=== PATIENT | female | born 1945 | race Caucasian/White ===

== ENCOUNTER 2016-10-01 16:16 | Inpatient (IN) | payer MEDICARE, OTHER ==
[2016-10-01] MEDS ORDERED: ACETAMINOPHEN 325 MG TABLET PO ONE (16:28)
--- NOTE | 2016-10-01 16:28 | ER Document Report ---
ED Medical Screen (RME) - General Chief Complaint: Fever Stated Complaint: FEVER/WOUND ON GROIN AREA Time Seen by Provider: 10/01/16 16:27 TRAVEL OUTSIDE OF THE [place] IN LAST 30 DAYS: No - HPI Notes: 10/01/16 16:27 Full code from [facility] with fever altered mental status. Family at bedside. Patient does have left a wound in the groin region temperature 103 - Related Data Allergies/Adverse Reactions: No Known Allergies Allergy (Unverified 10/14/13 11:00) Past Medical History - Past Medical History Cardiac Medical History: Reports: Hx Heart Attack - NSTEMI 04-16-11 Denies: Hx Hypertension Pulmonary Medical History: Denies: Hx Asthma Neurological Medical History: Reports: Hx Seizures - x2. Denies: Hx Cerebrovascular Accident Endocrine Medical History: Reports: Hx Diabetes Mellitus Type 2 Renal/ Medical History: Denies: Hx Peritoneal Dialysis GI Medical History: Denies: Hx Hepatitis, Hx Hiatal Hernia, Hx Ulcer Musculoskeltal Medical History: Reports Hx Arthritis - RA Psychiatric Medical History: Reports: Hx Depression Infectious Medical History: Denies: Hx Hepatitis Past Surgical History: Reports: Hx Abdominal Surgery - gastric bypass, Hx Cholecystectomy, Hx Gastric Bypass Surgery, Hx Gynecologic Surgery - hysterectomy, Hx Hysterectomy, Hx Neurologic Surgery - brain tumor removal 2008. Denies: Hx Mastectomy, Hx Open Heart Surgery, Hx Pacemaker - Immunizations Hx Diphtheria, Pertussis, Tetanus Vaccination: No Review of Systems - Review of Systems Constitutional: Fever Physical Exam - Vital signs Vitals: Temp Pulse Resp BP Pulse Ox 103 F H 95 22 H 134/59 H 94 10/01/16 16:17 10/01/16 16:17 10/01/16 16:17 10/01/16 16:17 10/01/16 16:17 - Respiratory Respiratory status: No respiratory distress Chest status: Nontender Breath sounds: Normal Chest palpation: Normal Course - Vital Signs Vital signs: Temp Pulse Resp BP Pulse Ox 103 F H 95 22 H 134/59 H 94 10/01/16 16:17 10/01/16 16:17 10/01/16 16:17 10/01/16 16:17 10/01/16 16:17
[2016-10-01] MEDS ORDERED: NORMAL SALINE 1000 ML 1,000 ML IV ONE (16:40)
--- NOTE | 2016-10-01 17:11 | ER Document Report ---
ED Fever - General Chief Complaint: Fever Stated Complaint: FEVER/WOUND ON GROIN AREA Time Seen by Provider: 10/01/16 16:27 Notes: The patient is a 71-year-old female, with a complicated past medical history, including recent hospitalizations last month at [facility] following a ventral hernia repair that led to 2 bouts of MRSA pneumonia that required intubation and urinary tract infections, poorly controlled diabetes, COPD, hypertension, chronic atrial fibrillation and prior tracheostomy removed 1 week ago. She was transferred to [facility] a few days ago and today developed an erythematous rash on her abdomen and a fever up to 103. She saw her surgeon 2 days ago and had the wound cleaned and a wound VAC was placed by the residential. She denies increased discharge out of the wound, urinary symptoms, shortness of breath, cough, nausea, vomiting, abdominal pain, flank pain, headache or neck stiffness. TRAVEL OUTSIDE OF THE [place] IN LAST 30 DAYS: No - Related Data Allergies/Adverse Reactions: No Known Allergies Allergy (Unverified 10/14/13 11:00) Past Medical History - General Information source: Patient - Social History Smoking Status: Never Smoker Family History: Reviewed & Not Pertinent - Past Medical History Cardiac Medical History: Reports: Hx Heart Attack - NSTEMI 04-16-11 Denies: Hx Hypertension Pulmonary Medical History: Denies: Hx Asthma Neurological Medical History: Reports: Hx Seizures - x2. Denies: Hx Cerebrovascular Accident Endocrine Medical History: Reports: Hx Diabetes Mellitus Type 2 Renal/ Medical History: Denies: Hx Peritoneal Dialysis GI Medical History: Denies: Hx Hepatitis, Hx Hiatal Hernia, Hx Ulcer Musculoskeltal Medical History: Reports Hx Arthritis - RA Psychiatric Medical History: Reports: Hx Depression Infectious Medical History: Denies: Hx Hepatitis Past Surgical History: Reports: Hx Abdominal Surgery - gastric bypass, Hx Cholecystectomy, Hx Gastric Bypass Surgery, Hx Gynecologic Surgery - hysterectomy, Hx Hysterectomy, Hx Neurologic Surgery - brain tumor removal 2008. Denies: Hx Mastectomy, Hx Open Heart Surgery, Hx Pacemaker - Immunizations Hx Diphtheria, Pertussis, Tetanus Vaccination: No Review of Systems - Review of Systems Notes: REVIEW OF SYSTEMS: CONSTITUTIONAL: +fevers, -chills EENT: -eye pain, -difficulty swallowing, -nasal congestion CARDIOVASCULAR:-chest pain, -syncope. RESPIRATORY: -cough, -SOB GASTROINTESTINAL: -abdominal pain, -nausea, -vomiting, -diarrhea GENITOURINARY: -dysuria, -hematuria MUSCULOSKELETAL: -back pain, -neck pain SKIN: -rash or skin lesions. HEMATOLOGIC: -easy bruising or bleeding. LYMPHATIC: -swollen, enlarged glands. NEUROLOGICAL: -altered mental status or loss of consciousness, -headache, - neurologic symptoms PSYCHIATRIC: -anxiety, -depression. ALL OTHER SYSTEMS REVIEWED AND NEGATIVE. Physical Exam - Vital signs Vitals: Temp Pulse Resp BP Pulse Ox 103 F H 95 22 H 134/59 H 94 10/01/16 16:17 10/01/16 16:17 10/01/16 16:17 10/01/16 16:17 10/01/16 16:17 - Notes Notes: PHYSICAL EXAMINATION: GENERAL: Well-appearing, well-nourished and in no acute distress. HEAD: Atraumatic, normocephalic. EYES: Pupils equal round and reactive to light, extraocular movements intact, sclera anicteric, conjunctiva are normal. ENT: nares patent, oropharynx clear without exudates. Moist mucous membranes. NECK: Normal range of motion, supple without lymphadenopathy LUNGS: Breath sounds clear to auscultation bilaterally and equal. No wheezes rales or rhonchi. HEART: Regular rate and rhythm without murmurs ABDOMEN: Soft, nontender, normoactive bowel sounds. No guarding, no rebound. No masses appreciated. EXTREMITIES: Normal range of motion, no pitting or edema. No cyanosis. NEUROLOGICAL: Cranial nerves grossly intact. Normal speech, normal gait. Normal sensory, motor, and reflex exams. PSYCH: Normal mood, normal affect. SKIN: Warm, Dry, normal turgor, no rashes or lesions noted. Course - Re-evaluation Re-evalutation: Patient with large abdominal wall cellulitis that started today with fever. Her blood pressure is normal and lactate is normal. ED does not show any evidence of abscess, gas or fluid collection. Patient has history of MRSA. Area of cellulitis marked with surgical marker and will begin vancomycin. Pt also has hypokalemia and was repleted. Pt's PMD is Dr. Davian Smith. 10/01/16 19:[address] Kiser and he has accepted patient to inpatient telemetry. Pt is HD stable at this time. - Vital Signs Vital signs: Temp Pulse Resp BP Pulse Ox 103 F H 95 22 H 134/59 H 94 10/01/16 16:17 10/01/16 16:17 10/01/16 16:17 10/01/16 16:17 10/01/16 16:17 - Laboratory Result Diagrams: 10/01/16 19:26 10/01/16 16:56 Laboratory results interpreted by me: 10/01/16 10/01/16 10/01/16 16:56 16:56 16:56 WBC Hgb Hct MCH RDW VBG pH 7.57 H VBG pCO2 34.8 L Sodium 130.6 L Potassium 2.9 L* Chloride 89 L Carbon Dioxide 32 H Glucose 175 H Calcium 8.0 L Albumin 2.9 L Urine Ascorbic Acid 40 H 10/01/16 19:26 WBC 20.0 H Hgb 9.8 L Hct 30.3 L MCH 26.1 L RDW 16.0 H VBG pH VBG pCO2 Sodium Potassium Chloride Carbon Dioxide Glucose Calcium Albumin Urine Ascorbic Acid - Diagnostic Test Radiology reviewed: Image reviewed, Reports reviewed Radiology results interpreted by me: CT A/P: SURGICAL CHANGES IN THE LOWER ABDOMINAL WALL FOLLOWING HERNIA REPAIR. OPEN MIDLINE INCISION. GENERAL EDEMATOUS CHANGES IN THE SOFT TISSUES BUT NO ABSCESS VISUALIZED. 2. NO OTHER SIGNIFICANT FINDINGS. - EKG Interpretation by Me EKG shows normal: Sinus rhythm, [place], Intervals, QRS Complexes, ST-T Waves Additional EKG results interpreted by me: Poor baseline Discharge - Discharge Clinical Impression: Abdominal wall cellulitis, Hypokalemia Sepsis Qualifiers: Sepsis type: sepsis due to unspecified organism Qualified Code(s): A41.9 - Sepsis, unspecified organism Condition: Stable Disposition: ADMITTED INPATIENT Admitting Provider: [facility] Unit Admitted: Telemetry
[2016-10-01 17:35] LABS: VENOUS BLOOD BASE EXCESS 8.9 mmol/L; VENOUS BLOOD HCO3 31.2 mmol/L (20-32); VENOUS BLOOD PCO2 34.8 mmHg (35-63); VENOUS BLOOD PH 7.57 (7.30-7.42)
[2016-10-01 17:40] LABS: APPEARANCE,URINE CLEAR; BILIRUBIN,URINE NEGATIVE (NEGATIVE); GLUCOSE, URINE NEGATIVE (NEGATIVE); KETONES,URINE NEGATIVE (NEGATIVE); LEUKOCYTE ESTERASE,URINE NEGATIVE (NEGATIVE); NITRITE,URINE NEGATIVE (NEGATIVE); PROTEIN,URINE NEGATIVE (NEGATIVE); PROTHROMBIN TIME 13.9 SEC (11.4-15.4); URINE SPECIFIC GRAVITY 1.008; UROBILINOGEN,URINE NEGATIVE mg/dL (<2.0)
[2016-10-01 17:53] LABS: ALANINE AMINOTRANSFERASE 21 U/L (9-52); ALBUMIN 2.9 g/dL (3.5-5.0); ALKALINE PHOSPHATASE 113 U/L (38-126); ANION GAP 10 (5-19); ASPARTATE AMINO TRANSFERASE 15 U/L (14-36); BILIRUBIN,DIRECT 0.4 mg/dL (0.0-0.4); BILIRUBIN,TOTAL 0.9 mg/dL (0.2-1.3); BLOOD UREA NITROGEN 11 mg/dL (7-20); CARBON DIOXIDE 32 mmol/L (22-30); CHLORIDE 89 mmol/L (98-107); CREATININE RESULT 0.62 mg/dL (0.52-1.25); GLUCOSE 175 mg/dL (75-110); SODIUM 130.6 mmol/L (137-145); TOTAL PROTEIN 6.5 g/dL (6.3-8.2)
[2016-10-01 18:01] LABS: POTASSIUM 2.9 mmol/L (3.6-5.0)
[2016-10-01] MEDS ORDERED: POTASSIUM CHLORIDE 10 MEQ TABLET.SA PO ONE (18:06)
[2016-10-01] MEDS ORDERED: VANCOMYCIN HCL INJ 1000 MG VIAL IV ONE (18:56)
[2016-10-01] MEDS: POTASSI CL 20 MEQ/50 ML RIDER 50 ML IV SCH ×2 (19:05→22:03)
[2016-10-01 19:36] LABS: HEMATOCRIT 30.3 % (36.0-47.0); HEMOGLOBIN 9.8 g/dL (12.0-15.5); HGB HCT DIFFERENCE -0.9; MEAN CORPUSCULAR HEMOGLOBIN 26.1 pg (27.0-33.4); MEAN CORPUSCULAR HGB CONC 32.4 g/dL (32.0-36.0); MEAN CORPUSCULAR VOLUME 81 fl (80-97); RED BLOOD COUNT 3.75 10^6/uL (3.72-5.28)
[2016-10-01] MEDS ORDERED: IBUPROFEN 600 MG TABLET PO ONE (19:37)
[2016-10-01 19:54] LABS: BAND NEUTROPHILS % (MANUAL) 1 % (3-5); BASOPHILS % (MANUAL) 0 % (0-2); EOSINOPHILS % (MANUAL) 0 % (0-6); LYMPHOCYTES % (MANUAL) 7 % (13-45); TOTAL CELLS COUNTED 100
[2016-10-01 19:57] LABS: ANISOCYTOSIS 1+; HYPOCHROMASIA 1+; MICROCYTOSIS SLIGHT; OVALOCYTES SLIGHT; PLATELET CLUMPS PRESENT; POLYCHROMASIA SLIGHT; TARGET CELLS SLIGHT
[2016-10-01] MEDS ORDERED: NORMAL SALINE 1000 ML 1,000 ML IV PRN (20:12)
[2016-10-01] MEDS ORDERED: VANCOMYCIN HCL 0 MG in DEXTROSE 5%-WATER 250 ML IV NR (20:15)
[2016-10-01] MEDS ORDERED: PIPERACILLIN SODIUM/TAZOBACTAM 3.375 GM in NORMAL SALINE 100 ML IV ONE (20:30)
[2016-10-01] MEDS ORDERED: VANCOMYCIN HCL 1,250 MG in DEXTROSE 5%-WATER 250 ML IV ONE (20:30)
[2016-10-01] MEDS ORDERED: VANCOMYCIN HCL INJ 1000 MG VIAL ONE (21:20)
[2016-10-01 21:22] LABS: CREATINE KINASE MB 0.25 ng/mL (<4.55)
[2016-10-01 21:23] LABS: PARTIAL THROMBOPLASTIN TIME 31.9 SEC (23.5-35.8); PROTHROMBIN TIME 14.9 SEC (11.4-15.4)
[2016-10-01 21:26] LABS: TROPONIN I 0.074 ng/mL
[2016-10-01] MEDS: HEPARIN SOD (PORCINE) 5,000 UNIT/ML 1 ML SYRINGE SUBCUT SCH (21:33)
--- NOTE | 2016-10-01 22:43 | EKG REPORT ---
SEVERITY:- ABNORMAL ECG - SR WITH APCs, BLOCKED APCs PROBABLE LVH WITH SECONDARY REPOL ABNRM : Confirmed by: Dwayne Rivas 01-Oct-2016 22:42:54
[2016-10-02] MEDS ORDERED: PIPERACILLIN/TAZOBACTAM 3.375 GM VIAL IV ONE (00:51)
[2016-10-02] MEDS: HYDROCODONE/ACETAMINOPHEN 5-325 MG TABLET PO PRN ×3 (02:24→21:21)
[2016-10-02] MEDS: PIPERACILLIN SODIUM/TAZOBACTAM 3.375 GM in NORMAL SALINE 100 ML IV SCH ×4 (02:24→21:21)
[2016-10-02 03:21] LABS: ABSOLUTE BASOPHILS # (AUTO) 0.1 10^3/uL (0.0-0.2); ABSOLUTE LYMPHOCYTES (AUTO) 0.8 10^3/uL (0.5-4.7); ABSOLUTE MONOCYTES (AUTO) 0.6 10^3/uL (0.1-1.4); ABSOLUTE NEUT (AUTO) 13.1 10^3/uL (1.7-8.2); BASOPHILS % (AUTO) 0.6 % (0-2); EOSINOPHILS % (AUTO) 0.1 % (0-6); HEMATOCRIT 30.1 % (36.0-47.0); HEMOGLOBIN 9.8 g/dL (12.0-15.5); HGB HCT DIFFERENCE -0.7; LYMPHOCYTES % (AUTO) 5.4 % (13-45); MEAN CORPUSCULAR HEMOGLOBIN 26.2 pg (27.0-33.4); MEAN CORPUSCULAR HGB CONC 32.4 g/dL (32.0-36.0); MEAN CORPUSCULAR VOLUME 81 fl (80-97); MONOCYTES % (AUTO) 4.1 % (3-13); RED BLOOD COUNT 3.73 10^6/uL (3.72-5.28); SEGMENTED NEUTROPHILS % (AUTO) 89.8 % (42-78); WHITE BLOOD COUNT 14.6 10^3/uL (4.0-10.5)
[2016-10-02 03:36] LABS: ANION GAP 9 (5-19); BLOOD UREA NITROGEN 11 mg/dL (7-20); CARBON DIOXIDE 30 mmol/L (22-30); CHLORIDE 97 mmol/L (98-107); CREATINE KINASE 30 U/L (30-135); CREATININE RESULT 0.57 mg/dL (0.52-1.25); POTASSIUM 3.4 mmol/L (3.6-5.0); SODIUM 136.2 mmol/L (137-145)
[2016-10-02 03:41] LABS: GLUCOSE 134 mg/dL (75-110)
[2016-10-02 03:42] LABS: CALCIUM 7.9 mg/dL (8.4-10.2)
[2016-10-02 03:48] LABS: CREATINE KINASE MB 0.57 ng/mL (<4.55); TROPONIN I 0.052 ng/mL
[2016-10-02] MEDS: HEPARIN SOD (PORCINE) 5,000 UNIT/ML 1 ML SYRINGE SUBCUT SCH ×3 (05:50→22:40)
[2016-10-02] MEDS ORDERED: POLYETHYLENE GLYCOL 3350 POWDER 17 GM/1 PACKET PO PRN (07:13)
[2016-10-02] MEDS ORDERED: METOPROLOL TARTRATE 50 MG TABLET PO SCH (10:00)
[2016-10-02] MEDS ORDERED: MONTELUKAST SODIUM 10 MG TABLET PO SCH ×2 (10:00→22:00)
[2016-10-02 10:03] LABS: CREATINE KINASE MB 0.49 ng/mL (<4.55); TROPONIN I 0.035 ng/mL
[2016-10-02] MEDS: MULTIVITAMIN TABLET PO SCH (10:15)
[2016-10-02] MEDS: FUROSEMIDE 20 MG TABLET PO SCH (10:16)
[2016-10-02] MEDS: ASCORBIC ACID 500 MG TABLET PO SCH (10:17)
[2016-10-02] MEDS: FERROUS SULFATE 325 MG TABLET PO SCH (10:17)
[2016-10-02] MEDS: LEVOTHYROXINE SODIUM 0.025 MG TABLET PO SCH (10:17)
[2016-10-02] MEDS: FAMOTIDINE 20 MG TABLET PO SCH (10:17)
[2016-10-02] MEDS: LAMOTRIGINE 100 MG TABLET PO SCH (10:18)
[2016-10-02] MEDS: ROPINIROLE HCL 2 MG TABLET PO SCH (10:18)
[2016-10-02] MEDS: METOPROLOL TARTRATE 50 MG TABLET PO SCH ×2 (10:18→22:41)
[2016-10-02] MEDS: FLUTICASONE NASAL SPRAY 50 MCG/SPRY 120 SPRAY/16 GM NASL SCH (10:19)
[2016-10-02] MEDS: BISACODYL 5 MG TABEC PO SCH (10:52)
[2016-10-02] MEDS: DOCUSATE SODIUM 100 MG CAPSULE PO SCH ×2 (10:52→17:00)
[2016-10-02] MEDS: SENNOSIDES/DOCUSATE 8.6-50 MG 1 EACH TABLET PO SCH (10:52)
[2016-10-02] MEDS: ACETAMINOPHEN 325 MG TABLET PO PRN (13:46)
[2016-10-02] MEDS: VANCOMYCIN HCL 1,500 MG in DEXTROSE 5%-WATER 250 ML IV SCH ×2 (13:50→22:41)
[2016-10-03] MEDS: PIPERACILLIN SODIUM/TAZOBACTAM 3.375 GM in NORMAL SALINE 100 ML IV SCH ×3 (03:37→17:50)
[2016-10-03] MEDS: ACETAMINOPHEN 325 MG TABLET PO PRN (04:31)
[2016-10-03] MEDS: HEPARIN SOD (PORCINE) 5,000 UNIT/ML 1 ML SYRINGE SUBCUT SCH ×2 (05:54→18:12)
[2016-10-03 07:20] LABS: ABSOLUTE EOSINOPHILS # (AUTO) 0.3 10^3/uL (0.0-0.6); ABSOLUTE MONOCYTES (AUTO) 0.5 10^3/uL (0.1-1.4); ABSOLUTE NEUT (AUTO) 6.6 10^3/uL (1.7-8.2); BASOPHILS % (AUTO) 0.6 % (0-2); EOSINOPHILS % (AUTO) 3.5 % (0-6); HEMATOCRIT 26.8 % (36.0-47.0); HEMOGLOBIN 8.7 g/dL (12.0-15.5); HGB HCT DIFFERENCE -0.7; LYMPHOCYTES % (AUTO) 11.7 % (13-45); MEAN CORPUSCULAR HEMOGLOBIN 25.7 pg (27.0-33.4); MEAN CORPUSCULAR HGB CONC 32.4 g/dL (32.0-36.0); MEAN CORPUSCULAR VOLUME 79 fl (80-97); MONOCYTES % (AUTO) 5.7 % (3-13); RED BLOOD COUNT 3.38 10^6/uL (3.72-5.28); RED CELL DISTRIBUTION WIDTH 15.7 % (11.5-14.0); SEGMENTED NEUTROPHILS % (AUTO) 78.5 % (42-78); WHITE BLOOD COUNT 8.5 10^3/uL (4.0-10.5)
[2016-10-03 07:38] LABS: ANION GAP 9 (5-19); BLOOD UREA NITROGEN 8 mg/dL (7-20); CALCIUM 7.6 mg/dL (8.4-10.2); CARBON DIOXIDE 30 mmol/L (22-30); CHLORIDE 97 mmol/L (98-107); CREATININE RESULT 0.55 mg/dL (0.52-1.25); GLUCOSE 101 mg/dL (75-110); SODIUM 135.8 mmol/L (137-145)
[2016-10-03] MEDS ORDERED: POTASSIUM CHLORIDE 10 MEQ TABLET.SA PO ONE ×2 (11:17→12:15)
[2016-10-03] MEDS: METOPROLOL TARTRATE 50 MG TABLET PO SCH (11:19)
[2016-10-03] MEDS: ASCORBIC ACID 500 MG TABLET PO SCH (11:19)
[2016-10-03] MEDS: FAMOTIDINE 20 MG TABLET PO SCH (11:20)
[2016-10-03] MEDS: LEVOTHYROXINE SODIUM 0.025 MG TABLET PO SCH (11:20)
[2016-10-03] MEDS: MULTIVITAMIN TABLET PO SCH (11:21)
[2016-10-03] MEDS: FUROSEMIDE 20 MG TABLET PO SCH (11:21)
[2016-10-03] MEDS: LAMOTRIGINE 100 MG TABLET PO SCH (11:22)
[2016-10-03] MEDS: ROPINIROLE HCL 2 MG TABLET PO SCH (11:23)
[2016-10-03] MEDS: FERROUS SULFATE 325 MG TABLET PO SCH (11:24)
[2016-10-03] MEDS: FLUTICASONE NASAL SPRAY 50 MCG/SPRY 120 SPRAY/16 GM NASL SCH (11:24)
[2016-10-03] MEDS: DOCUSATE SODIUM 100 MG CAPSULE PO SCH ×2 (11:24→17:49)
[2016-10-03] MEDS: BISACODYL 5 MG TABEC PO SCH (11:24)
[2016-10-03] MEDS: SENNOSIDES/DOCUSATE 8.6-50 MG 1 EACH TABLET PO SCH (11:24)
[2016-10-03] MEDS: VANCOMYCIN HCL 1,500 MG in DEXTROSE 5%-WATER 250 ML IV SCH (12:00)
--- NOTE | 2016-10-03 18:28 | PDOC H&P ---
History of Present Illness Admission Date/PCP: 10/01/16 19:50 Patient complains of: Fever/wound on the abdominal area History of Present Illness: WILFREDO LARIOS is a 71 year old female This is a 71-year-old female with a complicated past medical history including the recent hospitalizations last month of the [place] and a [facility] falling the ventral hernia repair that at least 2 bouts of MRSA pneumonia that required intubations any urinary tract infections and history of the diabetes COPD hypertensions and a chronic atrial fibrillations and prior tracheostomy removed one week ago. She was transported to the [facility] a few days ago and today developed erythematous rash on her abdomen and fever up to 103. She saw her surgeon 2 days ago and had the wound clean and the wound VAC was placed by the half-way. She is denies any increasing any discharge out of the wound urinary symptoms any cough or any abdominal pain. Patient's white count was elevated 14 and patient was admitting in the hospital for the IV antibiotic and surgical consult Past Medical History Cardiac Medical History: Reports: Myocardial Infarction - NSTEMI 04-16-11 Denies: Hypertension Pulmonary Medical History: Denies: Asthma Neurological Medical History: Reports: Seizures - x2 Endocrine Medical History: Reports: Diabetes Mellitus Type 2 GI Medical History: Denies: Hepatitis, Hiatal Hernia Musculoskeltal Medical History: Reports: Arthritis - RA Psychiatric Medical History: Reports: Dementia, Depression Hematology: Reports: Anemia - B-12 SHOTS Denies: Sickle Cell Disease Past Surgical History Past Surgical History: Reports: Cholecystectomy, Gastric Bypass Surgery, Hysterectomy Denies: Amputation, Mastectomy, Pacemaker Social History Smoking Status: Never Smoker Frequency of Alcohol Use: None - Advance Directive Resuscitation Status: Full Code Family History Family History: Reviewed & Not Pertinent Parental Family History Reviewed: Yes Children Family History Reviewed: Yes Sibling(s) Family History Reviewed.: Yes Medication/Allergy Home Medications: Acetaminophen [Tylenol 325 mg Tablet] 650 mg PO Q4HP PRN 10/02/16 Ascorbate Calcium [Vitamin C] 500 mg PO DAILY 10/02/16 Bisacodyl [Dulcolax 5 mg Tablet] 10 mg PO Q2D 10/02/16 Chlorhexidine Gluconate [Peridex] 15 ml PO BID 10/02/16 Docusate Sodium [Colace 100 mg Capsule] 100 mg PO BID 10/02/16 Famotidine [Pepcid 20 mg Tablet] 20 mg PO DAILY 10/02/16 Ferrous Sulfate [Feosol 325 mg Tablet] 325 mg PO DAILY 10/02/16 Fluticasone Propionate [Flonase Nasal [place] 50 Mcg/[place] 16 gm] 1 spray NASL DAILY 10/02/16 Furosemide [Lasix 20 mg Tablet] 20 mg PO DAILY 10/02/16 Guaifenesin [Robitussin Syrup 200 mg/10 ml Ud Cup] 5 ml PO Q6HP PRN 10/02/16 Hydrocodone/Acetaminophen [[place] 5-325 mg Tablet] 1 tab PO Q6HP PRN 10/02/16 Insulin Lispro [Humalog] 0 units SQ .PERSLIDINGSCALE 10/02/16 Lamotrigine [Lamictal] 150 mg PO QHS 10/02/16 Levothyroxine Sodium [Synthroid] 25 mcg PO DAILY 10/02/16 Melatonin/Pyridoxine HCl (B6) [Melatonin 10 mg Tablet] 10 mg PO QHS 10/02/16 Metoprolol Tartrate [Lopressor 50 mg Tablet] 50 mg PO Q12 10/02/16 Montelukast Sodium [Singulair 10 mg Tablet] 10 mg PO DAILY 10/02/16 Multivits-Min/Iron/FA/Lutein [Centrum Silver Women Tablet] 1 tab PO DAILY Polyethylene Glycol 3350 [Miralax Powder 17 gm/Packet] 17 gm PO DAILYP PRN 10/02 Ropinirole HCl [Requip] 2 mg PO DAILY 10/02/16 Sennosides [Senna] 8.6 mg PO QHS 10/02/16 Allergies/Adverse Reactions: No Known Allergies Allergy (Unverified 10/14/13 11:00) Review of Systems Constitutional: PRESENT: chills, fever(s). ABSENT: headache(s), weight gain, weight loss Eyes: ABSENT: visual disturbances Ears: ABSENT: hearing changes Cardiovascular: ABSENT: chest pain, dyspnea on exertion, edema, orthropnea, palpitations Respiratory: ABSENT: cough, hemoptysis Gastrointestinal: PRESENT: abdominal pain. ABSENT: constipation, diarrhea, hematemesis, hematochezia, nausea, vomiting Genitourinary: ABSENT: dysuria, hematuria Musculoskeletal: ABSENT: joint swelling Integumentary: ABSENT: rash, wounds Neurological: ABSENT: abnormal gait, abnormal speech, confusion, dizziness, focal weakness, syncope Psychiatric: ABSENT: anxiety, depression, homidical ideation, suicidal ideation Endocrine: ABSENT: cold intolerance, heat intolerance, menstrual abnormalities, polydipsia, polyuria Hematologic/Lymphatic: ABSENT: easy bleeding, easy bruising, lymphadenopathy Physical Exam Vital Signs: Temp Pulse Resp BP Pulse Ox 98.2 F 86 20 126/77 H 98 10/03/16 15:32 10/03/16 15:32 10/03/16 15:32 10/03/16 15:32 10/03/16 15:32 Intake & Output 10/02/16 10/03/16 10/04/16 06:59 06:59 06:59 Intake Total 2250 4394 900 Output Total 1600 2700 Balance 2250 2794 -1800 Weight 85.9 kg General appearance: PRESENT: no acute distress, well-developed, well-nourished Head exam: PRESENT: atraumatic, normocephalic Eye exam: PRESENT: conjunctiva pink, EOMI, PERRLA. ABSENT: scleral icterus Ear exam: PRESENT: normal external ear exam Mouth exam: PRESENT: moist, tongue midline Neck exam: PRESENT: full ROM. ABSENT: carotid bruit, JVD, lymphadenopathy, thyromegaly Respiratory exam: PRESENT: clear to auscultation valentino Cardiovascular exam: PRESENT: RRR. ABSENT: diastolic murmur, rubs, systolic murmur Pulses: PRESENT: normal dorsalis pedis pul, +2 pedal pulses bilateral Vascular exam: PRESENT: normal capillary refill GI/Abdominal exam: PRESENT: normal bowel sounds Additonal comments: Open wound in the lower abdominal and the redness on the lower abdominal area on the whole entire area Rectal exam: PRESENT: deferred Neurological exam: PRESENT: alert, awake, oriented to person, oriented to place , oriented to time, oriented to situation, CN II-XII grossly intact. ABSENT: motor sensory deficit Psychiatric exam: PRESENT: appropriate affect, normal mood. ABSENT: homicidal ideation, suicidal ideation Skin exam: PRESENT: dry, intact, warm. ABSENT: cyanosis, rash Results Laboratory Results: 10/03/16 06:52 10/03/16 14:45 10/03/16 10/03/16 10/03/16 06:52 06:52 14:45 WBC 8.5 RBC 3.38 L Hgb 8.7 L Hct 26.8 L MCV 79 L MCH 25.7 L MCHC 32.4 RDW 15.7 H Plt Count 375 Seg Neutrophils % 78.5 H Lymphocytes % 11.7 L Monocytes % 5.7 Eosinophils % 3.5 Basophils % 0.6 Absolute Neutrophils 6.6 Absolute Lymphocytes 1.0 Absolute Monocytes 0.5 Absolute Eosinophils 0.3 Absolute Basophils 0.0 Sodium 135.8 L Potassium 3.0 L* 3.6 Chloride 97 L Carbon Dioxide 30 Anion Gap 9 BUN 8 Creatinine 0.55 Est GFR ( Amer) > 60 Est GFR (Non-Af Amer) > 60 Glucose 101 Calcium 7.6 L 10/02/16 06:00 Nasophary ([facility] Only) MRSA Surveillance Culture - Final NO MRSA RECOVERED 10/01/16 10/01/16 10/02/16 20:46 20:46 03:12 Creatine Kinase 24 L 30 CK-MB (CK-2) 0.25 Troponin I 0.074 10/02/16 10/02/16 10/02/16 03:12 09:21 09:21 Creatine Kinase 28 L CK-MB (CK-2) 0.57 0.49 Troponin I 0.052 0.035 Impressions: Chest X-Ray 10/01/16 16:28 IMPRESSION: LINEAR ATELECTASIS/ SCARRING IN THE LOWER LOBES. OTHERWISE NO ACUTE RADIOGRAPHIC FINDING IN THE CHEST. Abdomen/Pelvis CT 10/01/16 18:09 IMPRESSION: 1. SURGICAL CHANGES IN THE LOWER ABDOMINAL WALL FOLLOWING HERNIA REPAIR. OPEN MIDLINE INCISION. GENERAL EDEMATOUS CHANGES IN THE SOFT TISSUES BUT NO ABSCESS VISUALIZED. 2. NO OTHER SIGNIFICANT FINDINGS. Assessment & Plan - Diagnosis (1) Abdominal wall cellulitis Is this a current diagnosis for this admission?: YesPlan: Start the patient on IV Zosyn and vancomycin and get the blood culture urine culture and consult the surgery for further evaluations (2) Sepsis Qualifiers: Sepsis type: sepsis due to unspecified organism Qualified Code(s): A41.9 - Sepsis, unspecified organism Is this a current diagnosis for this admission?: YesPlan: Most likely due to the about conditions (3) Type II diabetes mellitus Qualifiers: Diabetes mellitus complication status: with unspecified complications Is this a current diagnosis for this admission?: YesPlan: Shimon a sliding scale (4) Depression Qualifiers: Depression Type: unspecified Qualified Code(s): F32.9 - Major depressive disorder, single episode, unspecified Is this a current diagnosis for this admission?: YesPlan: Currently stable (5) Dementia Qualifiers: Dementia type: unspecified type Is this a current diagnosis for this admission?: Yes (6) Hypokalemia Is this a current diagnosis for this admission?: YesPlan: Replace the potassiums (7) Hypertension Qualifiers: Hypertension type: essential hypertension Qualified Code(s): I10 - Essential (primary) hypertension Is this a current diagnosis for this admission?: YesPlan: Currently stable - Time Time Spent: 30 to 50 Minutes Medications reviewed and adjusted accordingly: Yes Anticipated discharge: Other Within: Other - Inpatient Certification Medical Necessity: Significant Comorbidiites Make Outpatient Treatment Too Risky , Need for IV Antibiotics Post Hospital Care: D/C [facility] Documentation - Plan Summary Plan Summary: Admitting the patient start the patient on IV antibiotic and consult the surgery
--- NOTE | 2016-10-03 18:32 | PDOC TRANSFER SUMMARY ---
General Admission Date/PCP: 10/01/16 19:50 Transfer Date: 10/03/16 Accepting Facility: [facility] Resuscitation Status: Full Code - Transfer Diagnosis (1) Abdominal wall cellulitis Is this a current diagnosis for this admission?: YesDiagnosis Summary: Discussed with the surgeon and suggest to transfer the patient's vidant for the further surgical interventions (2) Sepsis Is this a current diagnosis for this admission?: YesDiagnosis Summary: [employer] IV antibiotic (3) Type II diabetes mellitus Is this a current diagnosis for this admission?: YesDiagnosis Summary: Continues a sliding scale (4) Depression Is this a current diagnosis for this admission?: YesDiagnosis Summary: Currently stable (5) Dementia Is this a current diagnosis for this admission?: Yes (6) Hypokalemia Is this a current diagnosis for this admission?: Yes (7) Hypertension Is this a current diagnosis for this admission?: Yes - Transfer Medications Home Medications: Acetaminophen [Tylenol 325 mg Tablet] 650 mg PO Q4HP PRN 10/02/16 Ascorbate Calcium [Vitamin C] 500 mg PO DAILY 10/02/16 Bisacodyl [Dulcolax 5 mg Tablet] 10 mg PO Q2D 10/02/16 Chlorhexidine Gluconate [Peridex] 15 ml PO BID 10/02/16 Docusate Sodium [Colace 100 mg Capsule] 100 mg PO BID 10/02/16 Famotidine [Pepcid 20 mg Tablet] 20 mg PO DAILY 10/02/16 Ferrous Sulfate [Feosol 325 mg Tablet] 325 mg PO DAILY 10/02/16 Fluticasone Propionate [Flonase Nasal [place] 50 Mcg/[place] 16 gm] 1 spray NASL DAILY 10/02/16 Furosemide [Lasix 20 mg Tablet] 20 mg PO DAILY 10/02/16 Guaifenesin [Robitussin Syrup 200 mg/10 ml Ud Cup] 5 ml PO Q6HP PRN 10/02/16 Hydrocodone/Acetaminophen [[place] 5-325 mg Tablet] 1 tab PO Q6HP PRN 10/02/16 Insulin Lispro [Humalog] 0 units SQ .PERSLIDINGSCALE 10/02/16 Lamotrigine [Lamictal] 150 mg PO QHS 10/02/16 Levothyroxine Sodium [Synthroid] 25 mcg PO DAILY 10/02/16 Melatonin/Pyridoxine HCl (B6) [Melatonin 10 mg Tablet] 10 mg PO QHS 10/02/16 Metoprolol Tartrate [Lopressor 50 mg Tablet] 50 mg PO Q12 10/02/16 Montelukast Sodium [Singulair 10 mg Tablet] 10 mg PO DAILY 10/02/16 Multivits-Min/Iron/FA/Lutein [Centrum Silver Women Tablet] 1 tab PO DAILY Polyethylene Glycol 3350 [Miralax Powder 17 gm/Packet] 17 gm PO DAILYP PRN 10/02 Ropinirole HCl [Requip] 2 mg PO DAILY 10/02/16 Sennosides [Senna] 8.6 mg PO QHS 10/02/16 Transfer Medications: Current Medications Acetaminophen (Tylenol 325 Mg Tablet) 650 mg PO Q6HP PRN PRN Reason: PAIN SCALE OF 1-3 Stop: 11/01/16 01:05 Last Admin: 10/03/16 04:31 Dose: 650 mg Acetaminophen/Hydrocodone Bitart ([place] 5-325 Mg Tablet) 1 tab PO Q6HP PRN PRN Reason: FOR PAIN SCALE 3-4 Stop: 10/09/16 01:12 Last Admin: 10/02/16 21:21 Dose: 1 tab Ascorbic Acid (Vitamin C 500 Mg Tablet) 500 mg PO DAILY [facility] Stop: 11/01/16 09:59 Last Admin: 10/03/16 11:19 Dose: 500 mg Bisacodyl (Dulcolax 5 Mg Tablet) 10 mg PO DAILY [facility] Stop: 11/01/16 09:59 Last Admin: 10/03/16 11:24 Dose: Not Given Docusate Sodium (Colace 100 Mg Capsule) 100 mg PO BID [facility] Stop: 11/01/16 09:59 Last Admin: 10/03/16 17:49 Dose: Not Given Famotidine (Pepcid 20 Mg Tablet) 20 mg PO DAILY [facility] Stop: 11/01/16 09:59 Last Admin: 10/03/16 11:20 Dose: 20 mg Ferrous Sulfate (Feosol 325 Mg Tablet) 325 mg PO DAILY [facility] Stop: 11/01/16 09:59 Last Admin: 10/02/16 10:17 Dose: 325 mg Fluticasone Propionate (Flonase Nasal [place] 50 Mcg/[place] 16 Gm) 2 spray NASL DAILY [facility] Stop: 11/01/16 09:59 Last Admin: 10/03/16 11:24 Dose: Not Given Furosemide (Lasix 20 Mg Tablet) 20 mg PO DAILY [facility] Stop: 11/01/16 09:59 Last Admin: 10/03/16 11:21 Dose: 20 mg Heparin Sodium (Porcine) (Heparin Inj 5,000 Units/Ml 1 Ml Syringe) 5,000 unit SUBCUT Q8 ANITA Stop: 10/31/16 21:59 Last Admin: 10/03/16 18:12 Dose: 5,000 unit Piperacillin Sod/Tazobactam (Sod 3.375 gm/ Sodium Chloride) 100 mls @ 200 mls/ hr IV Q6A [facility] Stop: 10/09/16 02:59 Last Admin: 10/03/16 17:50 Dose: 3.375 gm Sodium Chloride (Nacl 0.9% 1000 Ml Iv Soln) 1,000 mls @ 100 mls/hr IV CONTINUOUS PRN PRN Reason: THIS MED IS NOT "PRN" Stop: 10/31/16 20:11 Last Admin: 10/01/16 21:25 Dose: 1,000 ml Vancomycin HCl 1,500 mg/ (Dextrose) 250 mls @ 166.667 mls/hr IV Q12 [facility] Stop: 10/09/16 09:59 Last Admin: 10/02/16 22:41 Dose: 1,500 mg Lamotrigine (Lamictal 100 Mg Tablet) 150 mg PO DAILY [facility] Stop: 11/01/16 09:59 Last Admin: 10/03/16 11:22 Dose: 150 mg Levothyroxine Sodium (Synthroid 0.025 Mg Tablet) 0.025 mg PO DAILY ANITA Stop: 11/01/16 09:59 Last Admin: 10/03/16 11:20 Dose: 0.025 mg Metoprolol Tartrate (Lopressor 50 Mg Tablet) 50 mg PO Q12 ANITA Stop: 11/01/16 09:59 Last Admin: 10/03/16 11:19 Dose: 50 mg Montelukast Sodium (Singulair 10 Mg Tablet) 10 mg PO QHS [facility] Stop: 11/01/16 21:59 Last Admin: 10/02/16 22:40 Dose: 10 mg Multivitamins (Tab-A-Eko (Multiple Vitamin) Tablet) 1 tab PO DAILY [facility] Stop: 11/01/16 09:59 Last Admin: 10/03/16 11:21 Dose: 1 tab Polyethylene Glycol (Miralax Powder 17 Gm/Packet) 17 gm PO DAILYP PRN PRN Reason: CONSTIPATION Stop: 11/01/16 07:12 Ropinirole HCl (Requip 2 Mg Tablet) 2 mg PO DAILY ANITA Stop: 11/01/16 09:59 Last Admin: 10/03/16 11:23 Dose: 2 mg Senna/Docusate Sodium (Senna Plus Tablet) 1 each PO DAILY ANITA Stop: 11/01/16 09:59 Last Admin: 10/03/16 11:24 Dose: Not Given - Allergies Allergies/Adverse Reactions: No Known Allergies Allergy (Unverified 10/14/13 11:00) Hospital Course Hospital Course: This is a 71-year-old female recently underwent hernia surgery and placed on the wound VAC and came to the emergency department with the fever and the cellulitis and patient was started on IV antibiotic and patient responded well the surgery was consulted and suggest the patient's need for further surgical intervention and discuss with the patient and the daughter was to perform to go to the count includes the [facility] for further evaluations and patient was transported to the tertiary center Physical Exam Vital Signs: Temp Pulse Resp BP Pulse Ox 98.2 F 86 20 126/77 H 98 10/03/16 15:32 10/03/16 15:32 10/03/16 15:32 10/03/16 15:32 10/03/16 15:32 Intake & Output 10/02/16 10/03/16 10/04/16 06:59 06:59 06:59 Intake Total 2250 4394 900 Output Total 1600 2700 Balance 2250 2794 -1800 Weight 85.9 kg General appearance: PRESENT: no acute distress, well-developed, well-nourished Head exam: PRESENT: atraumatic, normocephalic Eye exam: PRESENT: conjunctiva pink, EOMI, PERRLA. ABSENT: scleral icterus Ear exam: PRESENT: normal external ear exam Mouth exam: PRESENT: moist, tongue midline Neck exam: ABSENT: carotid bruit, JVD, lymphadenopathy, thyromegaly Respiratory exam: PRESENT: clear to auscultation valentino. ABSENT: rales, rhonchi, wheezes Cardiovascular exam: PRESENT: RRR. ABSENT: diastolic murmur, rubs, systolic murmur Pulses: PRESENT: normal dorsalis pedis pul Vascular exam: PRESENT: normal capillary refill GI/Abdominal exam: PRESENT: normal bowel sounds, soft, other Rectal exam: PRESENT: deferred Extremities exam: PRESENT: full ROM. ABSENT: calf tenderness, clubbing, pedal edema Neurological exam: PRESENT: alert, awake, oriented to person, oriented to place , oriented to time, oriented to situation, CN II-XII grossly intact. ABSENT: motor sensory deficit Psychiatric exam: PRESENT: appropriate affect, normal mood. ABSENT: homicidal ideation, suicidal ideation Skin exam: PRESENT: dry, intact, warm. ABSENT: cyanosis, rash Results Laboratory Results: 10/03/16 06:52 10/03/16 14:45 10/03/16 10/03/16 10/03/16 06:52 06:52 14:45 WBC 8.5 RBC 3.38 L Hgb 8.7 L Hct 26.8 L MCV 79 L MCH 25.7 L MCHC 32.4 RDW 15.7 H Plt Count 375 Seg Neutrophils % 78.5 H Lymphocytes % 11.7 L Monocytes % 5.7 Eosinophils % 3.5 Basophils % 0.6 Absolute Neutrophils 6.6 Absolute Lymphocytes 1.0 Absolute Monocytes 0.5 Absolute Eosinophils 0.3 Absolute Basophils 0.0 Sodium 135.8 L Potassium 3.0 L* 3.6 Chloride 97 L Carbon Dioxide 30 Anion Gap 9 BUN 8 Creatinine 0.55 Est GFR ( Amer) > 60 Est GFR (Non-Af Amer) > 60 Glucose 101 Calcium 7.6 L 10/02/16 06:00 Nasophary (Mrsa Only) MRSA Surveillance Culture - Final NO MRSA RECOVERED 10/01/16 10/01/16 10/02/16 20:46 20:46 03:12 Creatine Kinase 24 L 30 CK-MB (CK-2) 0.25 Troponin I 0.074 10/02/16 10/02/16 10/02/16 03:12 09:21 09:21 Creatine Kinase 28 L CK-MB (CK-2) 0.57 0.49 Troponin I 0.052 0.035 Impressions: Chest X-Ray 10/01/16 16:28 IMPRESSION: LINEAR ATELECTASIS/ SCARRING IN THE LOWER LOBES. OTHERWISE NO ACUTE RADIOGRAPHIC FINDING IN THE CHEST. Abdomen/Pelvis CT 10/01/16 18:09 IMPRESSION: 1. SURGICAL CHANGES IN THE LOWER ABDOMINAL WALL FOLLOWING HERNIA REPAIR. OPEN MIDLINE INCISION. GENERAL EDEMATOUS CHANGES IN THE SOFT TISSUES BUT NO ABSCESS VISUALIZED. 2. NO OTHER SIGNIFICANT FINDINGS. Plan Time Spent: Greater than 30 Minutes - Transfer the patient's vidant
[2016-10-03 20:41] VITALS: BP 129/61
== END 2016-10-03 20:30 | disposition short-term general hospital (02) | DRG 872 ==
LOC: ER 16:16 → EH 19:50 → 5 22:36
PROVIDERS: ADMIT Internal Medicine; ATTEND Family Medicine
DX: A41.9 Sepsis, unspecified organism (principal); L03.311 Cellulitis of abdominal wall; E87.6 Hypokalemia; I48.2 Chronic atrial fibrillation; I10 Essential (primary) hypertension; E11.9 Type 2 diabetes mellitus without complications; J44.9 Chronic obstructive pulmonary disease, unspecified; F03.90 Unspecified dementia, unspecified severity, without behavioral disturbance, psychotic disturbance, mood disturbance, and anxiety; R56.9 Unspecified convulsions; F32.9 Major depressive disorder, single episode, unspecified; M06.9 Rheumatoid arthritis, unspecified; I25.2 Old myocardial infarction
CPT/HCPCS: 36415; 71020; 74177; 80048; 80053; 81001; 82550; 82553; 82803; 83036; 83605; 83735; 84132; 84484; 85025; 85610; 85730; 87040; 87086; 87088; 87186; 93005; 93010; 96361; 96365; 99285; J1644; J2543; J3370; J3480; J3490; J7030; J7060

== ENCOUNTER 2016-12-05 11:34 | Inpatient (IN) | payer MEDICARE, OTHER ==
[2016-12-05] MEDS ORDERED: ACETAMINOPHEN 325 MG TABLET PO ONE (11:59)
--- NOTE | 2016-12-05 12:03 | ER Document Report ---
ED Medical Screen (RME) - General Chief Complaint: Black/Tarry Stools Stated Complaint: FEVER, BLACK STOOL Time Seen by Provider: 12/05/16 11:55 Information source: Patient Notes: 71-year-old female with supposedly a "hernia repair" 6 months ago who presents from [facility] with a fever yesterday as well as some nausea without vomiting, diarrhea, or dysuria. Patient also states some black stool. She denies any runny nose, congestion, headache, neck pain, chest pain, or cough. On examination the patient has diffuse erythema in a circular blanching margin to the abdomen around the wound site. We will obtain basic labs, blood cultures, provide Tylenol, and consider CT scanning of the abdomen and pelvis. TRAVEL OUTSIDE OF THE [place] IN LAST 30 DAYS: No - Related Data Allergies/Adverse Reactions: No Known Allergies Allergy (Verified 12/05/16 11:37) Past Medical History - Past Medical History Cardiac Medical History: Reports: Hx Heart Attack - NSTEMI 04-16-11 Denies: Hx Hypertension Pulmonary Medical History: Denies: Hx Asthma Neurological Medical History: Reports: Hx Seizures - x2. Denies: Hx Cerebrovascular Accident Endocrine Medical History: Reports: Hx Diabetes Mellitus Type 2 Renal/ Medical History: Denies: Hx Peritoneal Dialysis GI Medical History: Denies: Hx Hepatitis, Hx Hiatal Hernia, Hx Ulcer Musculoskeltal Medical History: Reports Hx Arthritis - RA Psychiatric Medical History: Reports: Hx Dementia, Hx Depression Infectious Medical History: Denies: Hx Hepatitis Past Surgical History: Reports: Hx Abdominal Surgery - gastric bypass, Hx Cholecystectomy, Hx Gastric Bypass Surgery, Hx Gynecologic Surgery - hysterectomy, Hx Hysterectomy, Hx Neurologic Surgery - brain tumor removal 2008. Denies: Hx Mastectomy, Hx Open Heart Surgery, Hx Pacemaker - Immunizations Hx Diphtheria, Pertussis, Tetanus Vaccination: No Physical Exam - Vital signs Vitals: Temp Pulse Resp BP Pulse Ox 100.0 F 72 18 115/71 96 12/05/16 11:37 12/05/16 11:37 12/05/16 11:37 12/05/16 11:37 12/05/16 11:37 Course - Vital Signs Vital signs: Temp Pulse Resp BP Pulse Ox 100.0 F 72 18 115/71 96 12/05/16 11:37 12/05/16 11:37 12/05/16 11:37 12/05/16 11:37 12/05/16 11:37
[2016-12-05 12:37] LABS: HEMATOCRIT 39.8 % (36.0-47.0); HEMOGLOBIN 12.6 g/dL (12.0-15.5); MEAN CORPUSCULAR HEMOGLOBIN 26.7 pg (27.0-33.4); MEAN CORPUSCULAR HGB CONC 31.6 g/dL (32.0-36.0); MEAN CORPUSCULAR VOLUME 84 fl (80-97); RED BLOOD COUNT 4.72 10^6/uL (3.72-5.28); RED CELL DISTRIBUTION WIDTH 22.5 % (11.5-14.0); WHITE BLOOD COUNT 22.3 10^3/uL (4.0-10.5)
[2016-12-05 12:42] LABS: ALANINE AMINOTRANSFERASE 26 U/L (9-52); ALBUMIN 3.4 g/dL (3.5-5.0); ALKALINE PHOSPHATASE 104 U/L (38-126); ANION GAP 11 (5-19); ASPARTATE AMINO TRANSFERASE 14 U/L (14-36); BILIRUBIN,DIRECT 0.2 mg/dL (0.0-0.4); BILIRUBIN,TOTAL 0.6 mg/dL (0.2-1.3); BLOOD UREA NITROGEN 17 mg/dL (7-20); CALCIUM 8.7 mg/dL (8.4-10.2); CARBON DIOXIDE 27 mmol/L (22-30); CHLORIDE 100 mmol/L (98-107); CREATININE RESULT 0.63 mg/dL (0.52-1.25); GLUCOSE 127 mg/dL (75-110); SODIUM 137.8 mmol/L (137-145); TOTAL PROTEIN 6.8 g/dL (6.3-8.2)
[2016-12-05 12:46] LABS: APPEARANCE,URINE SLIGHTLY-CLOUDY; BILIRUBIN,URINE NEGATIVE (NEGATIVE); GLUCOSE, URINE NEGATIVE (NEGATIVE); KETONES,URINE NEGATIVE (NEGATIVE); LEUKOCYTE ESTERASE,URINE MODERATE (NEGATIVE); NITRITE,URINE POSITIVE (NEGATIVE); PROTEIN,URINE NEGATIVE (NEGATIVE); URINE SPECIFIC GRAVITY 1.018; UROBILINOGEN,URINE NEGATIVE mg/dL (<2.0)
[2016-12-05 13:15] LABS: BASOPHILS % (MANUAL) 0 % (0-2); EOSINOPHILS % (MANUAL) 0 % (0-6); LYMPHOCYTES % (MANUAL) 8 % (13-45); TOTAL CELLS COUNTED 100
[2016-12-05 13:20] LABS: HYPOCHROMASIA SLIGHT; OVALOCYTES 1+; PLATELET CLUMPS PRESENT; POIKILOCYTOSIS 1+; POLYCHROMASIA SLIGHT; TOXIC GRANULATION SLIGHT; TOXIC VACUOLATION PRESENT
--- NOTE | 2016-12-05 13:24 | ER Document Report ---
ED General - General Chief Complaint: Black/Tarry Stools Stated Complaint: FEVER, BLACK STOOL Time Seen by Provider: 12/05/16 11:55 Information source: Patient TRAVEL OUTSIDE OF THE [place] IN LAST 30 DAYS: No - HPI Notes: 71-year-old female presents with complaints of abdominal pain, redness to abdomen and black stools. She apparently had a hernia repair with complications 6 months ago now with a fever yesterday as well as some nausea without vomiting, diarrhea, or dysuria. Patient does report her stool for the last 3 days being somewhat black in nature and loose. She does have a history of C. difficile as well. Last night she was noted pain below the chronic wound that she has and now in the last 24 hours redness.. She denies any runny nose, congestion, headache, neck pain, chest pain, or cough. - Related Data Allergies/Adverse Reactions: No Known Allergies Allergy (Verified 12/05/16 11:37) Past Medical History - General Information source: Patient - Social History Smoking Status: Never Smoker Chew tobacco use (# tins/day): No Frequency of alcohol use: None Drug Abuse: None Family History: Reviewed & Not Pertinent Patient has suicidal ideation: No Patient has homicidal ideation: No - Past Medical History Cardiac Medical History: Reports: Hx Heart Attack - NSTEMI 04-16-11 Denies: Hx Hypertension Pulmonary Medical History: Denies: Hx Asthma Neurological Medical History: Reports: Hx Seizures - x2. Denies: Hx Cerebrovascular Accident Endocrine Medical History: Reports: Hx Diabetes Mellitus Type 2 Renal/ Medical History: Denies: Hx Peritoneal Dialysis GI Medical History: Denies: Hx Hepatitis, Hx Hiatal Hernia, Hx Ulcer Musculoskeltal Medical History: Reports Hx Arthritis - RA Psychiatric Medical History: Reports: Hx Dementia, Hx Depression Infectious Medical History: Denies: Hx Hepatitis Past Surgical History: Reports: Hx Abdominal Surgery - gastric bypass, Hx Cholecystectomy, Hx Gastric Bypass Surgery, Hx Gynecologic Surgery - hysterectomy, Hx Hysterectomy, Hx Neurologic Surgery - brain tumor removal 2008. Denies: Hx Mastectomy, Hx Open Heart Surgery, Hx Pacemaker - Immunizations Hx Diphtheria, Pertussis, Tetanus Vaccination: No Review of Systems - Review of Systems -: Yes All other systems reviewed and negative Physical Exam - Vital signs Vitals: Temp Pulse Resp BP Pulse Ox 100.0 F 72 18 115/71 96 12/05/16 11:37 12/05/16 11:37 12/05/16 11:37 12/05/16 11:37 12/05/16 11:37 Interpretation: Normal, Febrile Notes: GENERAL: VS as per nursing doc. Well-appearing, well-nourished and in no acute distress. Nontoxic HEAD: Atraumatic, normocephalic. EYES: Pupils equal round and reactive to light, extraocular movements intact, sclera anicteric, no conjunctival injection or discharge. ENT: Nares patent, oropharynx clear without exudates, moist mucous membranes. NECK: Normal range of motion, supple without lymphadenopathy. LUNGS: Breath sounds clear to auscultation bilaterally and equal. No wheezes rales or rhonchi. HEART: Tachycardic ABDOMEN: Soft, mild generalized lower abdominal tenderness and at the region of the erythema BACK: No CVA tenderness. EXTREMITIES: Normal range of motion, no calf tenderness, no edema. NEUROLOGICAL: Cranial nerves grossly intact. Normal speech. Normal sensory and motor exams. No gross cerebellar abnormalities. PSYCH: Normal mood, normal affect. SKIN: Warm, dry, diffuse erythema with a circular blanching margin to the abdomen around the wound site. No obvious drainage but there is excessive warmth Course - Vital Signs Vital signs: Temp Pulse Resp BP Pulse Ox 99.2 F 76 17 122/52 L 94 12/05/16 15:23 12/05/16 15:23 12/05/16 15:23 12/05/16 15:23 12/05/16 15:23 - Laboratory Result Diagrams: 12/05/16 12:10 12/05/16 12:10 Laboratory results interpreted by me: 12/05/16 12/05/16 12/05/16 12:10 12:10 12:18 WBC 22.3 H MCH 26.7 L MCHC 31.6 L RDW 22.5 H Seg Neuts % (Manual) 90 H Lymphocytes % (Manual) 8 L Monocytes % (Manual) 2 L Abs Neuts (Manual) 20.1 H Glucose 127 H Albumin 3.4 L Urine Nitrite POSITIVE H Ur Leukocyte Esterase MODERATE H Urine Ascorbic Acid 40 H - Consults Dr. Riddle Time consulted: 15:48 - Patient is doctor Luis's patient. Dr. Kiser to be contacted. Reason for consultation: 12/05/16 15:50 Admission Discharge - Discharge Clinical Impression: Cellulitis of abdominal wall Condition: Fair Disposition: ADMITTED INPATIENT Admitting Provider: [facility] Unit Admitted: Medical Floor Referrals: WARREN VELASQUEZ MD [Primary Care Provider] - Follow up as needed
[2016-12-05 13:25] LABS: PROTHROMBIN TIME 12.9 SEC (11.4-15.4)
[2016-12-05] MEDS ORDERED: CEFTRIAXONE INJ 1000 MG VIAL IV ONE (13:29)
--- NOTE | 2016-12-05 17:06 | RADIOLOGY REPORT (SQ) ---
EXAM DESCRIPTION: CT ABD/PELVIS WITH IV ONLY COMPLETED DATE/TIME: 12/05/2016 4:22 pm REASON FOR STUDY: Abscess eval. COMPARISON: 10/01/2016 TECHNIQUE: CT scan of the abdomen and pelvis performed using helical scanning technique with dynamic intravenous contrast injection. No oral contrast. Images reviewed with lung, soft tissue, and bone windows. Reconstructed coronal and sagittal MPR images reviewed. Delayed images for evaluation of the urinary system also acquired. All images stored on PACS. All CT scanners at this facility use dose modulation, iterative reconstruction, and/or weight based d osing when appropriate to reduce radiation dose to as low as reasonably achievable (ALARA). [facility]: Dose Right [facility]: CareDose [facility]: Dose Right [facility]: Teradose 4D [facility]: Nimble TV CONTRAST TYPE AND DOSE: contrast/concentration: Isovue 370.00 mg/ml; Total Contrast Delivered: 86.0 ml; Total Saline Delivered: 39.0 ml RENAL FUNCTION: Creatinine 0.63 RADIATION DOSE: Up-to-date CT equipment and radiation dose reduction techniques were employed. CTDIv ol: 15.8 - 18.7 mGy. DLP: 1812 mGy-cm.. LIMITATIONS: None. FINDINGS: LOWER CHEST: No significant findings. No nodules or infiltrates. Mild basilar atelectasis or scarring. LIVER: Mild stable biliary tree dilatation likely related to previous cholecystectomy. SPLEEN: Normal size. No focal lesions. PANCREAS: No masses. No significant calcifications. No adjacent inflammation or peripancreatic fluid collections. Pancreatic duct not dilated. GALLBLADDER: Surgically absent. ADRENAL GLANDS: No significant masses or asymmetry. RIGHT KIDNEY AND URETER: No solid masses. No significant calcifications. No hydronephrosis or hyd roureter. LEFT KIDNEY AND URETER: No solid masses. No significant calcifications. No hydronephrosis or hydr oureter. AORTA AND VESSELS: No aneurysm. No dissection. Possible renal artery stenosis. No significant mesen teric stenosis. RETROPERITONEUM: No retroperitoneal adenopathy, hemorrhage or masses. BOWEL AND PERITONEAL CAVITY: Colonic diverticulosis most prominently involving the sigmoid colon. No evidence of diverticulitis. APPENDIX: Normal. PELVIS: No mass. No free fluid. Normal bladder. ABDOMINAL WALL: Open wound involving the lower abdominal wall with associated inflammatory changes. No abscess. Interval improvements since the prior study. BONES: Degenerative changes most prominently at L4-5. OTHER: No other significant finding. IMPRESSION: 1. Open wound involving the lower anterior abdominal wall with surrounding inflammatory change. No abscess. Compared to the prior study there has been improvement. 2. Diverticulosis without evidence of diverticulitis. 3. Mild chronic biliary tree dilatation likely related to previous cholecystectomy. TECHNICAL DOCUMENTATION: JOB ID: [id number] Quality ID # [id number]: Final reports with documentation of one or more dose reduction techniques (e.g., Au tomated exposure control, adjustment of the mA and/or kV according to patient size, use of iterative reconstruction technique) 2010 [employer] software- All Rights Reserved
[2016-12-05] MEDS ORDERED: VANCOMYCIN HCL 0 MG in DEXTROSE 5%-WATER 250 ML IV NR (20:15)
[2016-12-05] MEDS ORDERED: GUAIFENESIN SYRP 200 MG/10 ML UDC PO PRN (22:27)
[2016-12-05] MEDS ORDERED: TEMAZEPAM 15 MG CAPSULE PO ONE (23:59)
[2016-12-05] MEDS ORDERED: METOPROLOL TARTRATE 50 MG TABLET PO ONE (23:59)
[2016-12-05] MEDS ORDERED: CLONAZEPAM 1 MG TABLET PO ONE (23:59)
[2016-12-05] MEDS ORDERED: LAMOTRIGINE 100 MG TABLET PO ONE (23:59)
[2016-12-06] MEDS ORDERED: PIPERACILLIN SODIUM/TAZOBACTAM 3.375 GM in NORMAL SALINE 100 ML IV SCH ×2
[2016-12-06] MEDS: VANCOMYCIN HCL 750 MG in DEXTROSE 5%-WATER 250 ML IV SCH ×3 (00:26→23:06)
[2016-12-06] MEDS: ACETAMINOPHEN 325 MG TABLET PO PRN ×2 (00:38→15:58)
[2016-12-06] MEDS: LANSOPRAZOLE 15 MG TAB.RAP.DR PO SCH (05:23)
[2016-12-06] MEDS: FERROUS SULFATE LIQUID 300 MG/5 ML UDC PO SCH (09:16)
[2016-12-06] MEDS: MONTELUKAST SODIUM 10 MG TABLET PO SCH (09:17)
[2016-12-06] MEDS: ASCORBIC ACID 500 MG TABLET PO SCH (09:17)
[2016-12-06] MEDS: METOPROLOL TARTRATE 50 MG TABLET PO SCH ×2 (09:17→21:13)
[2016-12-06] MEDS: LEVOTHYROXINE SODIUM 0.025 MG TABLET PO SCH (09:17)
[2016-12-06] MEDS: SERTRALINE HCL 50 MG TABLET PO SCH (09:17)
[2016-12-06] MEDS: FLUTICASONE NASAL SPRAY 50 MCG/SPRY 120 SPRAY/16 GM NASL SCH ×2 (09:18→21:17)
[2016-12-06] MEDS: ENOXAPARIN SODIUM INJ 40 MG/0.4 ML DISP.SYRIN SUBCUT SCH (09:18)
[2016-12-06] MEDS: PIPERACILLIN SODIUM/TAZOBACTAM 3.375 GM in NORMAL SALINE 100 ML IV SCH ×3 (09:18→21:18)
[2016-12-06] MEDS ORDERED: (PENDING PHARMACY ID) (Olopatadine Hcl [Pataday] 2.5 ML) OU SCH (10:00)
[2016-12-06] MEDS ORDERED: (PENDING PHARMACY ID) (Enoxaparin Sodium 40 MG) SQ SCH (10:00)
[2016-12-06] MEDS ORDERED: FERROUS SULFATE PO SCH (10:00)
--- NOTE | 2016-12-06 18:56 | PDOC H&P ---
History of Present Illness Admission Date/PCP: 12/05/16 22:24 WARREN VELASQUEZ MD History of Present Illness: Patient is a 71-year-old female, very pleasant female with a very complex abdominal history, she presently resides in the senior living at [facility] she was transferred from the senior living to the emergency room for evaluation of abdominal pain and progressive worsening cellulitis of the abdominal wall. She was admitted at [facility] on July 2016 for the repair of a complex ventral hernia this was complicated with respiratory failure requiring a trach, sepsis and shock. She has abdominal wounds that is being dressed the senior living. When she came to the emergency room a CAT scan of the abdomen and pelvis with IV contrast was done it showed open wound involving the lower abdominal wall with surrounding inflammatory change there was no abscess also found was diverticulosis without evidence of diverticulitis. She was also found to have leukocytosis. Because of the ongoing cellulitis the emergency room physician is recommending hospital admission for management. Past Medical History Cardiac Medical History: Reports: Myocardial Infarction - NSTEMI 04-16-11 Pulmonary Medical History: Reports: Chronic Obstructive Pulmonary Disease (COPD) Neurological Medical History: Reports: Seizures - x2 Endocrine Medical History: Reports: Diabetes Mellitus Type 2, Hypothyroidism Musculoskeltal Medical History: Reports: Arthritis - RA Psychiatric Medical History: Reports: Dementia, Depression Hematology: Reports: Anemia - B-12 SHOTS Denies: Sickle Cell Disease Past Surgical History Past Surgical History: Reports: Cholecystectomy, Gastric Bypass Surgery, Hysterectomy Social History Smoking Status: Never Smoker Frequency of Alcohol Use: None Hx Recreational Drug Use: No Hx Prescription Drug Abuse: No - Advance Directive Resuscitation Status: Full Code Family History Family History: Reviewed & Not Pertinent Parental Family History Reviewed: Yes Children Family History Reviewed: Yes Sibling(s) Family History Reviewed.: Yes Medication/Allergy Home Medications: Acetaminophen [Tylenol 325 mg Tablet] 650 mg PO Q6HP PRN 12/05/16 Ascorbic Acid [Vitamin C 500 mg Tablet] 500 mg PO DAILY 12/05/16 Clonazepam [Klonopin] 0.5 mg PO QHS 12/05/16 Enoxaparin Sodium [Lovenox] 40 mg SQ DAILY 12/05/16 Ferrous Sulfate [Ferrous Sulfate 220 mg/5 ml Elix 60 ml] 6.8 ml PO DAILY Fluticasone Propionate [Flonase Nasal [place] 50 Mcg/[place] 16 gm] 1 spray NASL Q12 12/05/16 Guaifenesin [Robitussin Syrup 200 mg/10 ml Ud Cup] 5 ml PO Q6HP PRN 12/05/16 Lamotrigine [Lamictal] 150 mg PO QHS 12/05/16 Levothyroxine Sodium [Synthroid 0.025 mg Tablet] 25 mcg PO DAILY 12/05/16 Metoprolol Tartrate [Lopressor 50 mg Tablet] 50 mg PO Q12 12/05/16 Montelukast Sodium [Singulair] 10 mg PO DAILY 12/05/16 Olopatadine HCl [Pataday] 2.5 ml OU DAILY 12/05/16 Omeprazole Magnesium [Prilosec Otc] 20 mg PO DAILY 12/05/16 Sertraline HCl [Zoloft] 100 mg PO DAILY 12/05/16 Temazepam [Restoril 15 mg Capsule] 15 mg PO QHS 12/05/16 Allergies/Adverse Reactions: No Known Allergies Allergy (Verified 12/05/16 11:37) Review of Systems Constitutional: PRESENT: fever(s) Eyes: ABSENT: visual disturbances Ears: ABSENT: hearing changes Cardiovascular: ABSENT: chest pain, dyspnea on exertion, edema, orthropnea, palpitations Respiratory: ABSENT: cough, hemoptysis Gastrointestinal: PRESENT: abdominal pain Genitourinary: ABSENT: dysuria, hematuria Musculoskeletal: ABSENT: joint swelling Integumentary: ABSENT: rash, wounds Neurological: ABSENT: abnormal gait, abnormal speech, confusion, dizziness, focal weakness, syncope Psychiatric: ABSENT: anxiety, depression, homidical ideation, suicidal ideation Endocrine: ABSENT: cold intolerance, heat intolerance, menstrual abnormalities, polydipsia, polyuria Hematologic/Lymphatic: ABSENT: easy bleeding, easy bruising, lymphadenopathy Physical Exam Vital Signs: Temp Pulse Resp BP Pulse Ox 98.6 F 73 18 129/75 H 96 12/06/16 16:00 12/06/16 16:00 12/06/16 16:00 12/06/16 16:00 12/06/16 16:00 Intake & Output 12/05/16 12/06/16 12/07/16 06:59 06:59 06:59 Intake Total 150 Balance 150 General appearance: PRESENT: no acute distress, well-developed, well-nourished Head exam: PRESENT: atraumatic, normocephalic Eye exam: PRESENT: conjunctiva pink, EOMI, PERRLA. ABSENT: scleral icterus Ear exam: PRESENT: normal external ear exam Mouth exam: PRESENT: moist, tongue midline Neck exam: PRESENT: full ROM. ABSENT: carotid bruit, JVD, lymphadenopathy, thyromegaly Respiratory exam: PRESENT: clear to auscultation valentino Cardiovascular exam: PRESENT: RRR. ABSENT: diastolic murmur, rubs, systolic murmur Pulses: PRESENT: normal dorsalis pedis pul, +2 pedal pulses bilateral Vascular exam: PRESENT: normal capillary refill GI/Abdominal exam: PRESENT: other - There is redness of the abdominal wall, with central packing, there is tenderness on deep palpation, it is soft there is no guarding to suggest peritonitis Rectal exam: PRESENT: deferred Neurological exam: PRESENT: alert, awake, oriented to person, oriented to place , oriented to time, oriented to situation, CN II-XII grossly intact Psychiatric exam: PRESENT: appropriate affect, normal mood Skin exam: PRESENT: dry, intact, warm Results Impressions: Abdomen/Pelvis CT 12/05/16 00:00 IMPRESSION: 1. Open wound involving the lower anterior abdominal wall with surrounding inflammatory change. No abscess. Compared to the prior study there has been improvement. 2. Diverticulosis without evidence of diverticulitis. 3. Mild chronic biliary tree dilatation likely related to previous cholecystectomy. Assessment & Plan - Diagnosis (1) Cellulitis of abdominal wall Is this a current diagnosis for this admission?: YesPlan: There is severe cellulitis of the abdominal wall associated with systemic inflammatory response syndrome she will be empirically treated with IV antibiotic, vancomycin and Zosyn to cover for all potential pathogens. She is a resident of the senior living, MRSA, gram-negative organisms are potential pathogens. (2) SIRS (systemic inflammatory response syndrome) Is this a current diagnosis for this admission?: Yes (3) Dementia Qualifiers: Dementia type: unspecified type Is this a current diagnosis for this admission?: Yes (4) Depression Qualifiers: Depression Type: unspecified Qualified Code(s): F32.9 - Major depressive disorder, single episode, unspecified (5) Hypertension Qualifiers: Hypertension type: essential hypertension Qualified Code(s): I10 - Essential (primary) hypertension (6) Type II diabetes mellitus Qualifiers: Diabetes mellitus complication status: with unspecified complications Diabetes mellitus long-term insulin use: unspecified meterman insulin use status Qualified Code(s): E11.8 - Type 2 diabetes mellitus with unspecified complications Is this a current diagnosis for this admission?: Yes
--- NOTE | 2016-12-06 19:01 | PDOC PROGRESS REPORT ---
Subjective Progress Note for:: 12/06/16 Subjective:: She was seen by the bedside, she was admitted yesterday for the management of severe abdominal cellulitis associated with systemic inflammatory response syndrome, there is improvement of the redness, but the yesterday. Physical Exam Vital Signs: Temp Pulse Resp BP Pulse Ox 98.6 F 73 18 129/75 H 96 12/06/16 16:00 12/06/16 16:00 12/06/16 16:00 12/06/16 16:00 12/06/16 16:00 Intake & Output 12/05/16 12/06/16 12/07/16 06:59 06:59 06:59 Intake Total 2220 Balance 2220 General appearance: PRESENT: no acute distress Eye exam: PRESENT: PERRLA Respiratory exam: PRESENT: clear to auscultation valentino Cardiovascular exam: PRESENT: +S1, +S2 GI/Abdominal exam: PRESENT: soft, other - Celluitis of the abdominal wall Neurological exam: PRESENT: alert, CN II-XII grossly intact Results Impressions: Abdomen/Pelvis CT 12/05/16 00:00 IMPRESSION: 1. Open wound involving the lower anterior abdominal wall with surrounding inflammatory change. No abscess. Compared to the prior study there has been improvement. 2. Diverticulosis without evidence of diverticulitis. 3. Mild chronic biliary tree dilatation likely related to previous cholecystectomy. Assessment & Plan - Diagnosis (1) Cellulitis of abdominal wall Is this a current diagnosis for this admission?: YesPlan: Continue IV antibiotic (2) SIRS (systemic inflammatory response syndrome) Is this a current diagnosis for this admission?: Yes (3) Dementia Qualifiers: Dementia type: unspecified type Is this a current diagnosis for this admission?: Yes (4) Depression Qualifiers: Depression Type: unspecified Qualified Code(s): F32.9 - Major depressive disorder, single episode, unspecified (5) Hypertension Qualifiers: Hypertension type: essential hypertension Qualified Code(s): I10 - Essential (primary) hypertension (6) Type II diabetes mellitus Qualifiers: Diabetes mellitus complication status: with unspecified complications Diabetes mellitus terminal clerk insulin use: unspecified terminal clerk insulin use status Qualified Code(s): E11.8 - Type 2 diabetes mellitus with unspecified complications; Z79.4 - MCFP (current) use of insulin Is this a current diagnosis for this admission?: Yes
--- NOTE | 2016-12-06 20:04 | PDOC CONSULTATION ---
Consultation Consult Date: 12/06/16 Consult reason:: Infected abdominal wound History of Present Illness Admission Date/PCP: 12/05/16 22:24 WARREN VELASQUEZ MD History of Present Illness: WILFREDO LARIOS is a 71 year old female s/p ventral herniorrpahy 6 months ago in a nearby hospital (no details are availble on technique or iuse of mesh), subsequently she has developed a cutaneous infection of the lower abdominal wall with redness, wound dehiscence (lower mid-laparotomy incision) drainage, formation of a large subcutaneous cavity. She was treated [facility] her [facility] with unspecified antibiotics and she has been admitted today with this history plus the c/o melena and epigatric pain. She has very poor recollection of the events and details of the hernia repair. The wound has been treated topically with dressing changes. Past Medical History Cardiac Medical History: Reports: Myocardial Infarction - NSTEMI 04-16-11 Denies: Hypertension Pulmonary Medical History: Denies: Asthma Neurological Medical History: Reports: Seizures - x2 Endocrine Medical History: Reports: Diabetes Mellitus Type 2 GI Medical History: Denies: Hepatitis, Hiatal Hernia Musculoskeltal Medical History: Reports: Arthritis - RA Psychiatric Medical History: Reports: Dementia, Depression Hematology: Reports: Anemia - B-12 SHOTS Denies: Sickle Cell Disease Past Surgical History Past Surgical History: Reports: Cholecystectomy, Gastric Bypass Surgery, Hysterectomy Denies: Amputation, Mastectomy, Pacemaker Social History Smoking Status: Never Smoker Frequency of Alcohol Use: None Hx Recreational Drug Use: No Hx Prescription Drug Abuse: No - Advance Directive Resuscitation Status: Full Code Family History Family History: Reviewed & Not Pertinent Parental Family History Reviewed: Yes Children Family History Reviewed: Yes Sibling(s) Family History Reviewed.: Yes Medication/Allergy Home Medications: Acetaminophen [Tylenol 325 mg Tablet] 650 mg PO Q6HP PRN 12/05/16 Ascorbic Acid [Vitamin C 500 mg Tablet] 500 mg PO DAILY 12/05/16 Clonazepam [Klonopin] 0.5 mg PO QHS 12/05/16 Enoxaparin Sodium [Lovenox] 40 mg SQ DAILY 12/05/16 Ferrous Sulfate [Ferrous Sulfate 220 mg/5 ml Elix 60 ml] 6.8 ml PO DAILY Fluticasone Propionate [Flonase Nasal [place] 50 Mcg/[place] 16 gm] 1 spray NASL Q12 12/05/16 Guaifenesin [Robitussin Syrup 200 mg/10 ml Ud Cup] 5 ml PO Q6HP PRN 12/05/16 Lamotrigine [Lamictal] 150 mg PO QHS 12/05/16 Levothyroxine Sodium [Synthroid 0.025 mg Tablet] 25 mcg PO DAILY 12/05/16 Metoprolol Tartrate [Lopressor 50 mg Tablet] 50 mg PO Q12 12/05/16 Montelukast Sodium [Singulair] 10 mg PO DAILY 12/05/16 Olopatadine HCl [Pataday] 2.5 ml OU DAILY 12/05/16 Omeprazole Magnesium [Prilosec Otc] 20 mg PO DAILY 12/05/16 Sertraline HCl [Zoloft] 100 mg PO DAILY 12/05/16 Temazepam [Restoril 15 mg Capsule] 15 mg PO QHS 12/05/16 Allergies/Adverse Reactions: No Known Allergies Allergy (Verified 12/05/16 11:37) Physical Exam Vital Signs: Temp Pulse Resp BP Pulse Ox 98.6 F 73 18 129/75 H 96 12/06/16 16:00 12/06/16 16:00 12/06/16 16:00 12/06/16 16:00 12/06/16 16:00 Intake & Output 12/05/16 12/06/16 12/07/16 06:59 06:59 06:59 Intake Total 150 Balance 150 General appearance: PRESENT: no acute distress Head exam: PRESENT: atraumatic Eye exam: PRESENT: EOMI Neck exam: PRESENT: full ROM Respiratory exam: PRESENT: clear to auscultation valentino Cardiovascular exam: PRESENT: RRR GI/Abdominal exam: PRESENT: other - obese, presence of large area of erythema in the lower half of the abdomen, umbilicus and below extended to both right and left lateral quadrant down to pubis, open wound along the midline below the umbilicus, with serous drainage, no odor with sponge packing the wound Extremities exam: PRESENT: full ROM Psychiatric exam: PRESENT: appropriate affect, depressed Results Impressions: Abdomen/Pelvis CT 12/05/16 00:00 IMPRESSION: 1. Open wound involving the lower anterior abdominal wall with surrounding inflammatory change. No abscess. Compared to the prior study there has been improvement. 2. Diverticulosis without evidence of diverticulitis. 3. Mild chronic biliary tree dilatation likely related to previous cholecystectomy. Assessment & Plan - Diagnosis (3) Dementia Qualifiers: Dementia type: unspecified type (4) Depression Qualifiers: Depression Type: unspecified Qualified Code(s): F32.9 - Major depressive disorder, single episode, unspecified (5) Sepsis Qualifiers: Sepsis type: sepsis due to unspecified organism Qualified Code(s): A41.9 - Sepsis, unspecified organism (6) Type II diabetes mellitus Qualifiers: Diabetes mellitus complication status: with unspecified complications Diabetes mellitus manager intermediate insulin use: unspecified snf insulin use status Qualified Code(s): E11.8 - Type 2 diabetes mellitus with unspecified complications; Z79.4 - half-way (current) use of insulin - Plan Summary Plan Summary: Assessment: infected postsurgical abdominal wound type of surgery and use of mesh or other details are unknown CT scan of the A/P shows cellulitis and subcutaneous cavitation with no intraabdominal extention Leucocytosis multiple medical problems Plan: Continue current antibiotics (Zosyn//Vanco) Kal area of cellulitis obtain culture swab for aerobic/anaerobic and gram stain obtain records of surgical procedure NPO after midnight pack wound with NS moist Kerlex roll BID Possible surgical debridment according to progress or worsening of the wound
[2016-12-06] MEDS: CLONAZEPAM 1 MG TABLET PO SCH (21:14)
[2016-12-06] MEDS: LAMOTRIGINE 100 MG TABLET PO SCH (21:15)
[2016-12-06] MEDS: TEMAZEPAM 15 MG CAPSULE PO SCH (21:17)
[2016-12-06] MEDS: NORMAL SALINE 1000 ML 1,000 ML IV PRN (21:19)
[2016-12-06] MEDS ORDERED: (PENDING PHARMACY ID) (Lamotrigine [Lamictal] 150 MG) PO SCH (22:00)
[2016-12-06] MEDS ORDERED: (PENDING PHARMACY ID) (Clonazepam [Klonopin] 0.5 MG) PO SCH (22:00)
[2016-12-07] MEDS: PIPERACILLIN SODIUM/TAZOBACTAM 3.375 GM in NORMAL SALINE 100 ML IV SCH ×4 (03:22→20:24)
[2016-12-07] MEDS: LANSOPRAZOLE 15 MG TAB.RAP.DR PO SCH (06:05)
[2016-12-07] MEDS: SERTRALINE HCL 50 MG TABLET PO SCH (09:54)
[2016-12-07] MEDS: ASCORBIC ACID 500 MG TABLET PO SCH (09:54)
[2016-12-07] MEDS: ENOXAPARIN SODIUM INJ 40 MG/0.4 ML DISP.SYRIN SUBCUT SCH (09:54)
[2016-12-07] MEDS: FERROUS SULFATE LIQUID 300 MG/5 ML UDC PO SCH (09:54)
[2016-12-07] MEDS: MONTELUKAST SODIUM 10 MG TABLET PO SCH (09:54)
[2016-12-07] MEDS: METOPROLOL TARTRATE 50 MG TABLET PO SCH ×2 (09:55→23:00)
[2016-12-07] MEDS: LEVOTHYROXINE SODIUM 0.025 MG TABLET PO SCH (09:55)
[2016-12-07] MEDS: FLUTICASONE NASAL SPRAY 50 MCG/SPRY 120 SPRAY/16 GM NASL SCH ×2 (09:55→23:04)
[2016-12-07 10:34] LABS: CREATININE RESULT 0.59 mg/dL (0.52-1.25)
--- NOTE | 2016-12-07 10:42 | Physician Advisory Note ---
Physician Advisor ProgressNote .: Pursuant to the plan for [facility], I have reviewed the medical record for this patient. Physician Advisor Statement: Please consider documentin. A. "SIRS dx ruled out" - vs. B. Document the criteria by which dx of SIRS was made, & state whether or not sepsis was present clinically (since cause is infection). - (+)Leukocytosis >12. No temp >100.4, or HR >90 or RR>20 documented so far. Thanks! CK
[2016-12-07] MEDS: VANCOMYCIN HCL 750 MG in DEXTROSE 5%-WATER 250 ML IV SCH ×2 (11:24→22:59)
[2016-12-07] MEDS: NORMAL SALINE 1000 ML 1,000 ML IV PRN (11:25)
--- NOTE | 2016-12-07 13:00 | PDOC PROGRESS REPORT ---
Subjective Progress Note for:: 12/07/16 Subjective:: Feels well. Erythema of her abdominal wall has markedly improved. Physical Exam Vital Signs: Temp Pulse Resp BP Pulse Ox 98.7 F 74 16 127/87 H 97 12/07/16 11:52 12/07/16 11:52 12/07/16 11:52 12/07/16 11:52 12/07/16 11:52 Intake & Output 12/06/16 12/07/16 12/08/16 06:59 06:59 06:59 Intake Total 3820 500 Balance 3820 500 General appearance: PRESENT: no acute distress, cooperative GI/Abdominal exam: PRESENT: other - Subtle erythema diffusely of the lower abdominal pannus that appears to be retracting well as indicated by the markings that were made when she initially came in. The wound appears very clean with no purulent drainage. There is tunneling that was felt digitally. No purulent output. Results Laboratory Results: 12/07/16 10:00 12/07/16 10:00 Creatinine 0.59 Est GFR ( Amer) > 60 Est GFR (Non-Af Amer) > 60 Impressions: Abdomen/Pelvis CT 12/05/16 00:00 IMPRESSION: 1. Open wound involving the lower anterior abdominal wall with surrounding inflammatory change. No abscess. Compared to the prior study there has been improvement. 2. Diverticulosis without evidence of diverticulitis. 3. Mild chronic biliary tree dilatation likely related to previous cholecystectomy. Assessment & Plan - Diagnosis (1) Abdominal wall cellulitis Is this a current diagnosis for this admission?: YesPlan: Responding well with antibiotics. Wound may benefit from scraping the lining intraoperatively and applying a wound VAC however patient does not wish to undergo any surgery other than by the surgeon who had initially performed her ventral hernia repair. The infection appears to be under control right now. Would continue IV antibiotics for a couple more days and then switch over to p.o. antibiotics until she can be seen as an outpatient by her surgeon at [facility]. Will apply a wound VAC in the meantime..
--- NOTE | 2016-12-07 21:30 | PDOC PROGRESS REPORT ---
Subjective Progress Note for:: 12/07/16 Subjective:: She was seen by the bedside there is significant improvement in the cellulitis of the abdominal wall, she was seen by the surgeon and a wound VAC was applied to the wound in the abdomen. She will continue present regimen Physical Exam Vital Signs: Temp Pulse Resp BP Pulse Ox 97.9 F 71 18 135/62 H 95 12/07/16 16:00 12/07/16 16:00 12/07/16 16:00 12/07/16 16:00 12/07/16 16:00 Intake & Output 12/06/16 12/07/16 12/08/16 06:59 06:59 06:59 Intake Total 3820 1660 Balance 3820 1660 General appearance: PRESENT: no acute distress Eye exam: PRESENT: PERRLA Respiratory exam: PRESENT: clear to auscultation valentino Cardiovascular exam: PRESENT: +S1, +S2 GI/Abdominal exam: PRESENT: soft Neurological exam: PRESENT: alert Skin exam: PRESENT: erythema - There is improvement of the erythema of the skin of the abdominal wall Results Laboratory Results: 12/07/16 10:00 12/07/16 10:00 Creatinine 0.59 Est GFR ( Amer) > 60 Est GFR (Non-Af Amer) > 60 Impressions: Abdomen/Pelvis CT 12/05/16 00:00 IMPRESSION: 1. Open wound involving the lower anterior abdominal wall with surrounding inflammatory change. No abscess. Compared to the prior study there has been improvement. 2. Diverticulosis without evidence of diverticulitis. 3. Mild chronic biliary tree dilatation likely related to previous cholecystectomy. Assessment & Plan - Diagnosis (1) Cellulitis of abdominal wall Is this a current diagnosis for this admission?: YesPlan: She will continue present treatment with IV Zosyn and vancomycin for a few more days before discharge (2) Dementia Qualifiers: Dementia type: unspecified type Dementia behavioral disturbance: without behavioral disturbance Qualified Code(s): F03.90 - Unspecified dementia without behavioral disturbance Is this a current diagnosis for this admission?: Yes (3) Depression Qualifiers: Depression Type: unspecified Qualified Code(s): F32.9 - Major depressive disorder, single episode, unspecified (4) Hypertension Qualifiers: Hypertension type: essential hypertension Qualified Code(s): I10 - Essential (primary) hypertension (5) Type II diabetes mellitus Qualifiers: Diabetes mellitus complication status: with unspecified complications Diabetes mellitus custodial insulin use: unspecified custodial insulin use status Qualified Code(s): E11.8 - Type 2 diabetes mellitus with unspecified complications; Z79.4 - marine oil terminal superintendent (current) use of insulin Is this a current diagnosis for this admission?: Yes
[2016-12-07] MEDS: LAMOTRIGINE 100 MG TABLET PO SCH (23:01)
[2016-12-07] MEDS: TEMAZEPAM 15 MG CAPSULE PO SCH (23:01)
[2016-12-07] MEDS: CLONAZEPAM 1 MG TABLET PO SCH (23:02)
[2016-12-08] MEDS: NORMAL SALINE 1000 ML 1,000 ML IV PRN ×2 (04:25→18:46)
[2016-12-08] MEDS: PIPERACILLIN SODIUM/TAZOBACTAM 3.375 GM in NORMAL SALINE 100 ML IV SCH ×4 (04:25→20:41)
[2016-12-08] MEDS: LANSOPRAZOLE 15 MG TAB.RAP.DR PO SCH (05:57)
[2016-12-08] MEDS: LEVOTHYROXINE SODIUM 0.025 MG TABLET PO SCH (05:58)
[2016-12-08] MEDS: METOPROLOL TARTRATE 50 MG TABLET PO SCH ×2 (09:34→21:40)
[2016-12-08] MEDS: SERTRALINE HCL 50 MG TABLET PO SCH (09:34)
[2016-12-08] MEDS: FLUTICASONE NASAL SPRAY 50 MCG/SPRY 120 SPRAY/16 GM NASL SCH ×2 (09:35→21:40)
[2016-12-08] MEDS: MONTELUKAST SODIUM 10 MG TABLET PO SCH (09:35)
[2016-12-08] MEDS: ENOXAPARIN SODIUM INJ 40 MG/0.4 ML DISP.SYRIN SUBCUT SCH (09:35)
[2016-12-08] MEDS: ASCORBIC ACID 500 MG TABLET PO SCH (09:35)
[2016-12-08] MEDS: FERROUS SULFATE LIQUID 300 MG/5 ML UDC PO SCH (09:35)
[2016-12-08] MEDS: VANCOMYCIN HCL 750 MG in DEXTROSE 5%-WATER 250 ML IV SCH ×2 (09:35→22:26)
--- NOTE | 2016-12-08 11:44 | PROGRESS NOTE E ---
Progress Note NAME: WILFREDO LARIOS : 1945 AGE: 71Y DATE: 12/08/2016 ROOM: 538 SUBJECTIVE: The patient is coming along fine. Wound VAC was placed yesterday. OBJECTIVE: Her abdomen remains soft and minimal tenderness. PLAN: Her white count on admission was 22,000 and I am going to have a repeat white count today. In the meantime, she will likely need a PICC line for IV antibiotics at home or at the [place] [facility] and then eventually to be followed up at [facility] for her wound infection since she has apparently a synthetic material for the repair of her incisional hernia which was done at [facility]. DICTATING PHYSICIAN: BENJAMÍN ANTOINE M.D. [id number] PHY#: [id number] ID: [id number] JOB#: [id number] ACCT: [id number] cc: >
[2016-12-08 12:13] LABS: ABSOLUTE EOSINOPHILS # (AUTO) 0.2 10^3/uL (0.0-0.6); ABSOLUTE LYMPHOCYTES (AUTO) 1.8 10^3/uL (0.5-4.7); ABSOLUTE MONOCYTES (AUTO) 0.5 10^3/uL (0.1-1.4); BASOPHILS % (AUTO) 0.5 % (0-2); EOSINOPHILS % (AUTO) 2.7 % (0-6); HEMATOCRIT 32.1 % (36.0-47.0); HGB HCT DIFFERENCE -0.6; LYMPHOCYTES % (AUTO) 23.5 % (13-45); MEAN CORPUSCULAR HEMOGLOBIN 28.1 pg (27.0-33.4); MEAN CORPUSCULAR HGB CONC 32.6 g/dL (32.0-36.0); MEAN CORPUSCULAR VOLUME 86 fl (80-97); MONOCYTES % (AUTO) 7.3 % (3-13); RED BLOOD COUNT 3.72 10^6/uL (3.72-5.28); RED CELL DISTRIBUTION WIDTH 22.5 % (11.5-14.0); WHITE BLOOD COUNT 7.5 10^3/uL (4.0-10.5)
[2016-12-08 12:14] LABS: HEMOGLOBIN 10.5 g/dL (12.0-15.5)
[2016-12-08 12:24] LABS: ANISOCYTOSIS 3+; OVALOCYTES 2+; POIKILOCYTOSIS 2+
--- NOTE | 2016-12-08 16:29 | RADIOLOGY REPORT (SQ) ---
EXAM DESCRIPTION: PICC INSERTION COMPLETED DATE/TIME: 12/08/2016 4:05 pm REASON FOR STUDY: HOME IV ANTIBIOTICS COMPARISON: None. FLUOROSCOPY TIME: 15 seconds 2 images saved to PACS. TECHNIQUE: Fluoroscopic and ultrasound guided PICC placement. LIMITATIONS: None. PROCEDURE: After written consent and assessment were obtained, the patient was brought into the [facility] roscopy room and place supine on the table. Ultrasound was used on the patient's left arm for PICC a ccess. The left arm was prepped and draped in a sterile fashion along with the ultrasound probe. The entry site was anesthetized with 1% lidocaine. A 21 gauge 7 cm needle was advanced through the skin a nd into the basilic vein under live ultrasound guidance. An ultrasound image was saved to PACS confi rming access site. A .018 guide wire was then inserted through the needle and into the venous system . The needle was the removed and an 11 blade scalpel was used to make a 1cm skin incision. A 5 fr pe el-away sheath was advanced over the wire and into the venous system. A measurement was then made usi ng the existing wire and live fluoroscopic guidance. The wire was then removed and the trimmed. The P ICC was advanced through the peel-away sheath and into the venous system. The peel-away sheath was re moved and the catheter was adhered to the patients arm with a stat lock. The catheter was then aspira annia and flushed and a sterile bandage was placed over the access site. A fluoroscopic spot image was saved to PACS confirming the catheter tip within the superior vena cava. IMPRESSION: SUCCESSFUL PLACEMENT OF A 5 FR dual LUMEN 30 CM PICC IN THE left basilic VEIN. COMMENT: Patient medication list reviewed: Yes. Quality ID 145: Final reports for procedures using fluoroscopy that document radiation exposure vernell tamica, or exposure time and number of fluorographic images (if radiation exposure indices are not avail able) Quality ID #[id number]: The patient was prepped and draped using maximum sterile barrier technique including cap, mask, sterile gown, sterile gloves, a large sterile sheet, hand hygiene, and 2% Chlorhexidine fo r cutaneous antisepsis. When ultrasound is used, sterile ultrasound techniques are followed requiring sterile gel and sterile probes. TECHNICAL DOCUMENTATION: JOB ID: [id number]- All Rights Reserved
--- NOTE | 2016-12-08 16:30 | RADIOLOGY REPORT (SQ) ---
EXAM DESCRIPTION: FLUORO/CV PLACEMENT COMPLETE DATE/TIME: 12/08/2016 4:05 pm REASON FOR STUDY: IV ABX FINDINGS: Please see combined report for performance of procedure and radiologic supervision and int erpretation. IMPRESSION: Please see combined report for performance of procedure and radiologic supervision and i nterpretation.
--- NOTE | 2016-12-08 16:30 | RADIOLOGY REPORT (SQ) ---
EXAM DESCRIPTION: U/S GUIDE FOR VASCULAR ACCESS COMPLETE DATE/TIME: 12/08/2016 4:05 pm REASON FOR STUDY: IV ABX FINDINGS: Please see combined report for performance of procedure and radiologic supervision and int erpretation. IMPRESSION: Please see combined report for performance of procedure and radiologic supervision and i nterpretation.
[2016-12-08] MEDS: TEMAZEPAM 15 MG CAPSULE PO SCH (21:40)
[2016-12-08] MEDS: LAMOTRIGINE 100 MG TABLET PO SCH (21:40)
[2016-12-08] MEDS: CLONAZEPAM 1 MG TABLET PO SCH (21:40)
--- NOTE | 2016-12-08 22:07 | PDOC PROGRESS REPORT ---
Subjective Progress Note for:: 12/08/16 Subjective:: Patient continued to improve with treatment, she came from the [facility] but she wants to return back home with home health, discharge planning is working with to ensure that she is able to return back HOME Physical Exam Vital Signs: Temp Pulse Resp BP Pulse Ox 98.2 F 57 L 17 143/53 H 96 12/08/16 20:26 12/08/16 20:26 12/08/16 20:26 12/08/16 20:26 12/08/16 20:26 Intake & Output 12/07/16 12/08/16 12/09/16 06:59 06:59 06:59 Intake Total 3820 3782 2760 Balance 3820 3782 2760 Weight 79.3 kg General appearance: PRESENT: no acute distress Eye exam: PRESENT: PERRLA Respiratory exam: PRESENT: clear to auscultation valentino Cardiovascular exam: PRESENT: +S1, +S2 GI/Abdominal exam: PRESENT: soft Results Laboratory Results: 12/08/16 11:40 12/07/16 10:00 12/08/16 11:40 WBC 7.5 RBC 3.72 Hgb 10.5 L D Hct 32.1 L MCV 86 MCH 28.1 MCHC 32.6 RDW 22.5 H Plt Count 266 Seg Neutrophils % 66.0 Lymphocytes % 23.5 Monocytes % 7.3 Eosinophils % 2.7 Basophils % 0.5 Absolute Neutrophils 5.0 Absolute Lymphocytes 1.8 Absolute Monocytes 0.5 Absolute Eosinophils 0.2 Absolute Basophils 0.0 Impressions: Abdomen/Pelvis CT 12/05/16 00:00 IMPRESSION: 1. Open wound involving the lower anterior abdominal wall with surrounding inflammatory change. No abscess. Compared to the prior study there has been improvement. 2. Diverticulosis without evidence of diverticulitis. 3. Mild chronic biliary tree dilatation likely related to previous cholecystectomy. Guidance Fluoroscopy 12/08/16 00:00 IMPRESSION: Please see combined report for performance of procedure and radiologic supervision and interpretation. Interventional Vascular Procedure 12/08/16 00:00 IMPRESSION: Please see combined report for performance of procedure and radiologic supervision and interpretation. PICC Line Insertion 12/08/16 00:00 IMPRESSION: SUCCESSFUL PLACEMENT OF A 5 FR dual LUMEN 30 CM PICC IN THE left basilic VEIN. Assessment & Plan - Diagnosis (1) Cellulitis of abdominal wall Is this a current diagnosis for this admission?: Yes (2) Dementia Qualifiers: Dementia type: unspecified type Dementia behavioral disturbance: without behavioral disturbance Qualified Code(s): F03.90 - Unspecified dementia without behavioral disturbance Is this a current diagnosis for this admission?: Yes (3) Depression Qualifiers: Depression Type: unspecified Qualified Code(s): F32.9 - Major depressive disorder, single episode, unspecified (4) Hypertension Qualifiers: Hypertension type: essential hypertension Qualified Code(s): I10 - Essential (primary) hypertension (5) Type II diabetes mellitus Qualifiers: Diabetes mellitus complication status: with unspecified complications Diabetes mellitus usp insulin use: unspecified ad terminal makeup operator insulin use status Qualified Code(s): E11.8 - Type 2 diabetes mellitus with unspecified complications; Z79.4 - ad terminal makeup operator (current) use of insulin Is this a current diagnosis for this admission?: Yes - Plan Summary Plan Summary: Continue present treatment
[2016-12-09] MEDS: PIPERACILLIN SODIUM/TAZOBACTAM 3.375 GM in NORMAL SALINE 100 ML IV SCH ×4 (03:58→21:29)
[2016-12-09] MEDS: LANSOPRAZOLE 15 MG TAB.RAP.DR PO SCH (05:10)
[2016-12-09] MEDS: LEVOTHYROXINE SODIUM 0.025 MG TABLET PO SCH (05:10)
[2016-12-09] MEDS: VANCOMYCIN HCL 750 MG in DEXTROSE 5%-WATER 250 ML IV SCH ×2 (09:25→22:57)
[2016-12-09] MEDS: ENOXAPARIN SODIUM INJ 40 MG/0.4 ML DISP.SYRIN SUBCUT SCH (09:25)
[2016-12-09] MEDS: ASCORBIC ACID 500 MG TABLET PO SCH (09:26)
[2016-12-09] MEDS: METOPROLOL TARTRATE 50 MG TABLET PO SCH ×2 (09:26→21:28)
[2016-12-09] MEDS: FLUTICASONE NASAL SPRAY 50 MCG/SPRY 120 SPRAY/16 GM NASL SCH ×2 (09:26→21:28)
[2016-12-09] MEDS: SERTRALINE HCL 50 MG TABLET PO SCH (09:26)
[2016-12-09] MEDS: MONTELUKAST SODIUM 10 MG TABLET PO SCH (09:26)
[2016-12-09] MEDS: NORMAL SALINE 1000 ML 1,000 ML IV PRN ×2 (09:28→23:05)
[2016-12-09] MEDS: FERROUS SULFATE LIQUID 300 MG/5 ML UDC PO SCH (09:34)
--- NOTE | 2016-12-09 10:26 | PDOC PROGRESS REPORT ---
Subjective Progress Note for:: 12/09/16 Subjective:: Complaining of minimal pain in the lower pannus Physical Exam Vital Signs: Temp Pulse Resp BP Pulse Ox 98.3 F 63 18 156/63 H 97 12/09/16 07:45 12/09/16 07:45 12/09/16 00:46 12/09/16 07:45 12/09/16 07:45 Intake & Output 12/08/16 12/09/16 12/10/16 06:59 06:59 06:59 Intake Total 3782 4740 Balance 3782 4740 Weight 79.3 kg General appearance: PRESENT: no acute distress GI/Abdominal exam: PRESENT: other - I can position inferiorly. No significant erythema on examination today. No fever or cellulitis. Results Laboratory Results: 12/08/16 11:40 12/07/16 10:00 12/08/16 11:40 WBC 7.5 RBC 3.72 Hgb 10.5 L D Hct 32.1 L MCV 86 MCH 28.1 MCHC 32.6 RDW 22.5 H Plt Count 266 Seg Neutrophils % 66.0 Lymphocytes % 23.5 Monocytes % 7.3 Eosinophils % 2.7 Basophils % 0.5 Absolute Neutrophils 5.0 Absolute Lymphocytes 1.8 Absolute Monocytes 0.5 Absolute Eosinophils 0.2 Absolute Basophils 0.0 Impressions: Abdomen/Pelvis CT 12/05/16 00:00 IMPRESSION: 1. Open wound involving the lower anterior abdominal wall with surrounding inflammatory change. No abscess. Compared to the prior study there has been improvement. 2. Diverticulosis without evidence of diverticulitis. 3. Mild chronic biliary tree dilatation likely related to previous cholecystectomy. Guidance Fluoroscopy 12/08/16 00:00 IMPRESSION: Please see combined report for performance of procedure and radiologic supervision and interpretation. Interventional Vascular Procedure 12/08/16 00:00 IMPRESSION: Please see combined report for performance of procedure and radiologic supervision and interpretation. PICC Line Insertion 12/08/16 00:00 IMPRESSION: SUCCESSFUL PLACEMENT OF A 5 FR dual LUMEN 30 CM PICC IN THE left basilic VEIN. Assessment & Plan - Diagnosis (1) Cellulitis of abdominal wall Is this a current diagnosis for this admission?: YesPlan: Assessment: Secondary infection of abdominal wall mass in patient with abdominal wall reconstruction, now sepsis controlled, with wound evacuated, and VAC in place, with normal white count and absence of fever Plan: 1. Continue intravenous antibiotics through PICC line left arm 2. Patient can be discharged to care home back, IV antibiotics 3. Patient can follow-up with [facility] in [place], or Zoila Jacob MD, [facility] [place], Trauma Service who performed original surgery
--- NOTE | 2016-12-09 16:59 | PDOC PROGRESS REPORT ---
Subjective Progress Note for:: 12/09/16 Subjective:: Patient was seen by the bedside, there is significant improvement of the cellulitis on IV antibiotic, Zosyn and vancomycin, she would need to remain on this antibiotic for a few more weeks. [facility], she also have a wound VAC in place Physical Exam Vital Signs: Temp Pulse Resp BP Pulse Ox 97.7 F 72 18 141/80 H 98 12/09/16 12:06 12/09/16 12:06 12/09/16 12:06 12/09/16 12:06 12/09/16 12:06 Intake & Output 12/08/16 12/09/16 12/10/16 06:59 06:59 06:59 Intake Total 3782 4740 650 Balance 3782 4740 650 Weight 79.3 kg General appearance: PRESENT: no acute distress, well-developed, well-nourished Head exam: PRESENT: atraumatic, normocephalic Eye exam: PRESENT: conjunctiva pink, EOMI, PERRLA Ear exam: PRESENT: normal external ear exam Mouth exam: PRESENT: moist, tongue midline Neck exam: PRESENT: full ROM Respiratory exam: PRESENT: clear to auscultation valentino Cardiovascular exam: PRESENT: RRR, +S1, +S2 Pulses: PRESENT: normal dorsalis pedis pul, +2 pedal pulses bilateral Vascular exam: PRESENT: normal capillary refill GI/Abdominal exam: PRESENT: normal bowel sounds, soft Rectal exam: PRESENT: deferred Neurological exam: PRESENT: alert, awake, oriented to person, oriented to place , oriented to time, oriented to situation, CN II-XII grossly intact. ABSENT: motor sensory deficit Psychiatric exam: PRESENT: appropriate affect, normal mood Skin exam: PRESENT: dry, intact, warm. ABSENT: cyanosis, rash Results Laboratory Results: 12/08/16 11:40 12/07/16 10:00 Impressions: Abdomen/Pelvis CT 12/05/16 00:00 IMPRESSION: 1. Open wound involving the lower anterior abdominal wall with surrounding inflammatory change. No abscess. Compared to the prior study there has been improvement. 2. Diverticulosis without evidence of diverticulitis. 3. Mild chronic biliary tree dilatation likely related to previous cholecystectomy. Guidance Fluoroscopy 12/08/16 00:00 IMPRESSION: Please see combined report for performance of procedure and radiologic supervision and interpretation. Interventional Vascular Procedure 12/08/16 00:00 IMPRESSION: Please see combined report for performance of procedure and radiologic supervision and interpretation. PICC Line Insertion 12/08/16 00:00 IMPRESSION: SUCCESSFUL PLACEMENT OF A 5 FR dual LUMEN 30 CM PICC IN THE left basilic VEIN. Assessment & Plan - Diagnosis (1) Cellulitis of abdominal wall Is this a current diagnosis for this admission?: Yes (2) Dementia Qualifiers: Dementia type: unspecified type Dementia behavioral disturbance: without behavioral disturbance Qualified Code(s): F03.90 - Unspecified dementia without behavioral disturbance Is this a current diagnosis for this admission?: Yes (3) Depression Qualifiers: Depression Type: unspecified Qualified Code(s): F32.9 - Major depressive disorder, single episode, unspecified (4) Hypertension Qualifiers: Hypertension type: essential hypertension Qualified Code(s): I10 - Essential (primary) hypertension (5) Type II diabetes mellitus Qualifiers: Diabetes mellitus complication status: with unspecified complications Diabetes mellitus local intermodal truck driver insulin use: unspecified local intermodal truck driver insulin use status Qualified Code(s): E11.8 - Type 2 diabetes mellitus with unspecified complications; Z79.4 - retirement (current) use of insulin Is this a current diagnosis for this admission?: Yes
[2016-12-09] MEDS: CLONAZEPAM 1 MG TABLET PO SCH (21:28)
[2016-12-09] MEDS: LAMOTRIGINE 100 MG TABLET PO SCH (21:28)
[2016-12-09] MEDS: TEMAZEPAM 15 MG CAPSULE PO SCH (21:28)
[2016-12-10] MEDS: PIPERACILLIN SODIUM/TAZOBACTAM 3.375 GM in NORMAL SALINE 100 ML IV SCH ×4 (03:08→21:17)
[2016-12-10] MEDS: LANSOPRAZOLE 15 MG TAB.RAP.DR PO SCH (05:25)
[2016-12-10] MEDS: LEVOTHYROXINE SODIUM 0.025 MG TABLET PO SCH (05:26)
[2016-12-10] MEDS: SERTRALINE HCL 50 MG TABLET PO SCH (09:13)
[2016-12-10] MEDS: ASCORBIC ACID 500 MG TABLET PO SCH (09:14)
[2016-12-10] MEDS: FERROUS SULFATE LIQUID 300 MG/5 ML UDC PO SCH (09:14)
[2016-12-10] MEDS: METOPROLOL TARTRATE 50 MG TABLET PO SCH ×2 (09:14→21:13)
[2016-12-10] MEDS: ENOXAPARIN SODIUM INJ 40 MG/0.4 ML DISP.SYRIN SUBCUT SCH (09:14)
[2016-12-10] MEDS: MONTELUKAST SODIUM 10 MG TABLET PO SCH (09:14)
[2016-12-10] MEDS: FLUTICASONE NASAL SPRAY 50 MCG/SPRY 120 SPRAY/16 GM NASL SCH ×2 (09:15→21:14)
[2016-12-10] MEDS: VANCOMYCIN HCL 750 MG in DEXTROSE 5%-WATER 250 ML IV SCH ×2 (09:15→22:31)
[2016-12-10 10:38] LABS: ABSOLUTE BASOPHILS # (AUTO) 0.1 10^3/uL (0.0-0.2); ABSOLUTE EOSINOPHILS # (AUTO) 0.2 10^3/uL (0.0-0.6); ABSOLUTE LYMPHOCYTES (AUTO) 1.5 10^3/uL (0.5-4.7); ABSOLUTE MONOCYTES (AUTO) 0.5 10^3/uL (0.1-1.4); ABSOLUTE NEUT (AUTO) 6.1 10^3/uL (1.7-8.2); BASOPHILS % (AUTO) 0.8 % (0-2); EOSINOPHILS % (AUTO) 2.8 % (0-6); HEMATOCRIT 31.2 % (36.0-47.0); HEMOGLOBIN 10.2 g/dL (12.0-15.5); HGB HCT DIFFERENCE -0.6; LYMPHOCYTES % (AUTO) 17.7 % (13-45); MEAN CORPUSCULAR HEMOGLOBIN 27.8 pg (27.0-33.4); MEAN CORPUSCULAR HGB CONC 32.6 g/dL (32.0-36.0); MEAN CORPUSCULAR VOLUME 85 fl (80-97); MONOCYTES % (AUTO) 5.9 % (3-13); RED BLOOD COUNT 3.66 10^6/uL (3.72-5.28); RED CELL DISTRIBUTION WIDTH 22.6 % (11.5-14.0); SEGMENTED NEUTROPHILS % (AUTO) 72.8 % (42-78); WHITE BLOOD COUNT 8.4 10^3/uL (4.0-10.5)
[2016-12-10 11:00] LABS: ALANINE AMINOTRANSFERASE 24 U/L (9-52); ALBUMIN 2.6 g/dL (3.5-5.0); ALKALINE PHOSPHATASE 56 U/L (38-126); ANION GAP 8 (5-19); ASPARTATE AMINO TRANSFERASE 13 U/L (14-36); BILIRUBIN,DIRECT 0.2 mg/dL (0.0-0.4); BILIRUBIN,TOTAL 0.3 mg/dL (0.2-1.3); BLOOD UREA NITROGEN 5 mg/dL (7-20); CALCIUM 8.1 mg/dL (8.4-10.2); CARBON DIOXIDE 24 mmol/L (22-30); CHLORIDE 108 mmol/L (98-107); CREATININE RESULT 0.62 mg/dL (0.52-1.25); GLUCOSE 101 mg/dL (75-110); POTASSIUM 3.9 mmol/L (3.6-5.0); SODIUM 139.5 mmol/L (137-145); TOTAL PROTEIN 5.2 g/dL (6.3-8.2)
[2016-12-10 11:04] LABS: ANISOCYTOSIS 2+; HYPOCHROMASIA SLIGHT; OVALOCYTES SLIGHT; POIKILOCYTOSIS SLIGHT
--- NOTE | 2016-12-10 12:01 | PDOC TRANSFER SUMMARY ---
General - Admit/Disc Date/PCP Admission Date/Primary Care Provider: 12/05/16 22:24 WARREN VELASQUEZ MD Discharge Date: 12/10/16 - Discharge Diagnosis (1) Cellulitis of abdominal wall Is this a current diagnosis for this admission?: Yes (2) Dementia Is this a current diagnosis for this admission?: Yes (3) Depression Is this a current diagnosis for this admission?: Yes (4) Hypertension Is this a current diagnosis for this admission?: Yes (5) Type II diabetes mellitus Is this a current diagnosis for this admission?: Yes - Additional Information Resuscitation Status: Full Code Home Medications: Acetaminophen [Tylenol 325 mg Tablet] 650 mg PO Q6HP PRN 12/05/16 Ascorbic Acid [Vitamin C 500 mg Tablet] 500 mg PO DAILY 12/05/16 Clonazepam [Klonopin] 0.5 mg PO QHS 12/05/16 Enoxaparin Sodium [Lovenox] 40 mg SQ DAILY 12/05/16 Ferrous Sulfate [Ferrous Sulfate 220 mg/5 ml Elix 60 ml] 6.8 ml PO DAILY Fluticasone Propionate [Flonase Nasal Brooks 50 Mcg/Brooks 16 gm] 1 spray NASL Q12 12/05/16 Guaifenesin [Robitussin Syrup 200 mg/10 ml Ud Cup] 5 ml PO Q6HP PRN 12/05/16 Lamotrigine [Lamictal] 150 mg PO QHS 12/05/16 Levothyroxine Sodium [Synthroid 0.025 mg Tablet] 25 mcg PO DAILY 12/05/16 Metoprolol Tartrate [Lopressor 50 mg Tablet] 50 mg PO Q12 12/05/16 Montelukast Sodium [Singulair] 10 mg PO DAILY 12/05/16 Olopatadine HCl [Pataday] 2.5 ml OU DAILY 12/05/16 Omeprazole Magnesium [Prilosec Otc] 20 mg PO DAILY 12/05/16 Sertraline HCl [Zoloft] 100 mg PO DAILY 12/05/16 Temazepam [Restoril 15 mg Capsule] 15 mg PO QHS 12/05/16 Piperacillin Sodium/Tazobactam [Zosyn Inj 3.375 gm Vial] 3.375 gm IV Q6A #0 vial 12/10/16 Vancomycin HCl in Dextrose 5 % [Vancomycin 750 mg/250 ml-D5w] 750 mg IV Q12 #0 plast..bag 12/10/16 History of Present Illness Admission Date/PCP: 12/05/16 22:24 Patient presented to the emergency room for evaluation of abdominal pain, she was found to severe cellulitis of the abdominal wall, she had abdominal wound due to repair of the complex ventral hernia. Hospital Course Hospital Course: She was admitted into the hospital for the management of severe abdominal wall cellulitis, she was treated with IV vancomycin and Zosyn to cover potential pathogens including MRSA, and gram-negative pathogens. She responded very well to the antibiotic there was near resolution of the cellulitis of the abdominal wall with this combination antibiotic therapy. She was seen in consultation by the surgeon because of the abdominal wound, wound VAC was recommended, this was applied on this admission, patient does not want any intervention at this time she would prefer that the surgeon that did the surgery in [place] will follow-up from a surgical standpoint. She will be discharged back to long term today, she will continue the therapy with dual antibiotic, vancomycin and Zosyn for the next 7 days, she will follow with the surgeon in [place] on Sunday, she can be discharge home with home health. Patient actually preferred to go home from the hospital but because she will be discharged on vancomycin and Zosyn and vancomycin we need to be followed, especially the trough level, this may be difficult for her at home. Physical Exam Vital Signs: Temp Pulse Resp BP Pulse Ox 97.9 F 70 16 144/83 H 97 12/09/16 23:51 12/09/16 23:51 12/09/16 23:51 12/09/16 23:51 12/09/16 23:51 Intake & Output 12/09/16 12/10/16 12/11/16 06:59 06:59 06:59 Intake Total 4740 4020 150 Balance 4740 4020 150 General appearance: PRESENT: no acute distress, well-developed, well-nourished Head exam: PRESENT: atraumatic, normocephalic Eye exam: PRESENT: conjunctiva pink, EOMI, PERRLA. ABSENT: scleral icterus Ear exam: PRESENT: normal external ear exam Mouth exam: PRESENT: moist, tongue midline Respiratory exam: PRESENT: clear to auscultation valentino Cardiovascular exam: PRESENT: RRR, +S1, +S2 Pulses: PRESENT: normal dorsalis pedis pul Vascular exam: PRESENT: normal capillary refill GI/Abdominal exam: PRESENT: normal bowel sounds, soft, other - open wound in the abdomen Rectal exam: PRESENT: deferred Extremities exam: PRESENT: full ROM Neurological exam: PRESENT: alert, awake, oriented to person, oriented to place , oriented to time, oriented to situation, CN II-XII grossly intact Psychiatric exam: PRESENT: appropriate affect, normal mood Skin exam: PRESENT: dry, intact, warm Results Laboratory Results: 12/10/16 10:30 12/10/16 10:30 12/10/16 12/10/16 10:30 10:30 WBC 8.4 RBC 3.66 L Hgb 10.2 L Hct 31.2 L MCV 85 MCH 27.8 MCHC 32.6 RDW 22.6 H Plt Count 248 Seg Neutrophils % 72.8 Lymphocytes % 17.7 Monocytes % 5.9 Eosinophils % 2.8 Basophils % 0.8 Absolute Neutrophils 6.1 Absolute Lymphocytes 1.5 Absolute Monocytes 0.5 Absolute Eosinophils 0.2 Absolute Basophils 0.1 Sodium 139.5 Potassium 3.9 Chloride 108 H Carbon Dioxide 24 Anion Gap 8 BUN 5 L Creatinine 0.62 Est GFR ( Amer) > 60 Est GFR (Non-Af Amer) > 60 Glucose 101 Calcium 8.1 L Total Bilirubin 0.3 AST 13 L ALT 24 Alkaline Phosphatase 56 Total Protein 5.2 L Albumin 2.6 L Impressions: Abdomen/Pelvis CT 12/05/16 00:00 IMPRESSION: 1. Open wound involving the lower anterior abdominal wall with surrounding inflammatory change. No abscess. Compared to the prior study there has been improvement. 2. Diverticulosis without evidence of diverticulitis. 3. Mild chronic biliary tree dilatation likely related to previous cholecystectomy. Guidance Fluoroscopy 12/08/16 00:00 IMPRESSION: Please see combined report for performance of procedure and radiologic supervision and interpretation. Interventional Vascular Procedure 12/08/16 00:00 IMPRESSION: Please see combined report for performance of procedure and radiologic supervision and interpretation. PICC Line Insertion 12/08/16 00:00 IMPRESSION: SUCCESSFUL PLACEMENT OF A 5 FR dual LUMEN 30 CM PICC IN THE left basilic VEIN.
[2016-12-10] MEDS: NORMAL SALINE 1000 ML 1,000 ML IV PRN (15:14)
[2016-12-10] MEDS: TEMAZEPAM 15 MG CAPSULE PO SCH (21:13)
[2016-12-10] MEDS: CLONAZEPAM 1 MG TABLET PO SCH (21:15)
[2016-12-10] MEDS: LAMOTRIGINE 100 MG TABLET PO SCH (21:17)
[2016-12-11] MEDS: ACETAMINOPHEN 325 MG TABLET PO PRN ×2 (01:41→09:55)
--- NOTE | 2016-12-11 01:49 | RADIOLOGY REPORT (SQ) ---
EXAM DESCRIPTION: CT HEAD WITHOUT COMPLETED DATE/TIME: 12/11/2016 1:34 am REASON FOR STUDY: FALL COMPARISON: None. TECHNIQUE: Axial images acquired through the brain without intravenous contrast. Images reviewed wi th bone, brain and subdural windows. Images stored on PACS. All CT scanners at this facility use dose modulation, iterative reconstruction, and/or weight based d osing when appropriate to reduce radiation dose to as low as reasonably achievable (ALARA). [facility]: Dose Right [facility]: CareDose [facility]: Dose Right [facility]: Teradose 4D [facility]: [employer] RADIATION DOSE: Up-to-date CT equipment and radiation dose reduction techniques were employed. CTDIv ol: 64.6 mGy. DLP: 1163 mGy-cm. mGy. LIMITATIONS: None. FINDINGS: VENTRICLES: Prominent. CEREBRUM: No masses. No hemorrhage. No midline shift. Areas of low density in the white matter mos t likely due to chronic micro-vascular ischemic change. No evidence for acute infarction. Right tem poral encephalomalacia secondary to prior surgery. CEREBELLUM: No masses. No hemorrhage. No alteration of density. No evidence for acute infarction. EXTRAAXIAL SPACES: Mild age-related involutional change. No fluid collections. No masses. ORBITS AND GLOBE: No intra- or extraconal masses. Normal contour of globe without masses. CALVARIUM: Right temporal craniotomy. PARANASAL SINUSES: No fluid or mucosal thickening. SOFT TISSUES: No mass or hematoma. OTHER: No other significant finding. IMPRESSION: MILD CHRONIC CHANGES OF ATROPHY AND MICROVASCULAR ISCHEMIA. Right temporal encephalomal acia status post surgery. NO ACUTE PROCESS. TECHNICAL DOCUMENTATION: JOB ID: [id number] Quality ID # [id number]: Final reports with documentation of one or more dose reduction techniques (e.g., Au tomated exposure control, adjustment of the mA and/or kV according to patient size, use of iterative reconstruction technique) 2010 [employer]- All Rights Reserved
[2016-12-11] MEDS: PIPERACILLIN SODIUM/TAZOBACTAM 3.375 GM in NORMAL SALINE 100 ML IV SCH ×2 (02:40→09:48)
[2016-12-11] MEDS: LANSOPRAZOLE 15 MG TAB.RAP.DR PO SCH (05:15)
[2016-12-11] MEDS: LEVOTHYROXINE SODIUM 0.025 MG TABLET PO SCH (05:15)
[2016-12-11] MEDS: METOPROLOL TARTRATE 50 MG TABLET PO SCH (09:47)
[2016-12-11] MEDS: SERTRALINE HCL 50 MG TABLET PO SCH (09:47)
[2016-12-11] MEDS: ASCORBIC ACID 500 MG TABLET PO SCH (09:47)
[2016-12-11] MEDS: MONTELUKAST SODIUM 10 MG TABLET PO SCH (09:48)
[2016-12-11] MEDS: ENOXAPARIN SODIUM INJ 40 MG/0.4 ML DISP.SYRIN SUBCUT SCH (09:48)
[2016-12-11] MEDS: VANCOMYCIN HCL 750 MG in DEXTROSE 5%-WATER 250 ML IV SCH (09:48)
[2016-12-11] MEDS: FERROUS SULFATE LIQUID 300 MG/5 ML UDC PO SCH (09:49)
[2016-12-11] MEDS: FLUTICASONE NASAL SPRAY 50 MCG/SPRY 120 SPRAY/16 GM NASL SCH (09:49)
[2016-12-11 12:47] VITALS: BP 120/66
== END 2016-12-11 16:12 | DRG 862 ==
LOC: ER 11:34 → UNDOADMIN 17:41 → EH 17:41 → 5 20:20 → EH 22:24 → 5 22:24
PROVIDERS: ADMIT Internal Medicine; ATTEND Internal Medicine
PROC: 02HV33Z Insertion of Infusion Device into Superior Vena Cava, Percutaneous Approach (ICD-10-PCS; principal; 2016-12-08)
PROC: B518ZZA Fluoroscopy of Superior Vena Cava, Guidance (ICD-10-PCS; 2016-12-08)
PROC: B548ZZA Ultrasonography of Superior Vena Cava, Guidance (ICD-10-PCS; 2016-12-08)
DX: T81.4XXA Infection following a procedure, initial encounter (principal); A41.9 Sepsis, unspecified organism; L03.311 Cellulitis of abdominal wall; N39.0 Urinary tract infection, site not specified; L76.82 Other postprocedural complications of skin and subcutaneous tissue; F03.90 Unspecified dementia, unspecified severity, without behavioral disturbance, psychotic disturbance, mood disturbance, and anxiety; F32.9 Major depressive disorder, single episode, unspecified; I10 Essential (primary) hypertension; E11.8 Type 2 diabetes mellitus with unspecified complications; Y83.4 Other reconstructive surgery as the cause of abnormal reaction of the patient, or of later complication, without mention of misadventure at the time of the procedure; B95.62 Methicillin resistant Staphylococcus aureus infection as the cause of diseases classified elsewhere; K57.90 Diverticulosis of intestine, part unspecified, without perforation or abscess without bleeding; M06.9 Rheumatoid arthritis, unspecified; D64.9 Anemia, unspecified; J44.9 Chronic obstructive pulmonary disease, unspecified; I25.2 Old myocardial infarction; Z90.49 Acquired absence of other specified parts of digestive tract; Z98.84 Bariatric surgery status; Z90.710 Acquired absence of both cervix and uterus; Z79.899 Other long term (current) drug therapy
CPT/HCPCS: 36415; 36569; 70450; 74177; 76937; 77001; 80053; 80202; 81001; 82272; 82565; 83605; 85025; 85610; 86850; 86900; 86901; 87040; 87070; 87077; 87086; 87088; 87186; 87205; 96365; 99285; J0696; J1642; J1650; J2543; J3370; J3490; J7030; J7060

== ENCOUNTER 2017-02-08 19:16 | Emergency (ER) | payer MEDICARE, OTHER ==
[2017-02-08] MEDS ORDERED: LEVETIRACETAM 500 MG TABLET PO ONE (20:56)
--- NOTE | 2017-02-08 20:58 | ER Document Report ---
ED General - General Chief Complaint: Seizure Stated Complaint: SEIZURE Time Seen by Provider: 02/08/17 19:38 Notes: Patient is a 71-year-old female with a past medical history of seizures, prior brain tumor resection, who presents after having a witnessed seizure while at [employer]. Patient states that she began to feel like "something was not right". Apparently other members of the yazidism noticed that she was having twitching on the left side of her body, did have a left facial droop and then had a generalized tonic-clonic seizure that lasted approximately 30 seconds to 1 minute and then during terminate spontaneously. Patient did have a postictal state. At time of presentation she has returned to normal. She does not currently take any antiepileptic drugs but apparently used to be on them. Family and the patient uncertain of why she is no longer taking his medications. She does not follow with a neurologist. Her last seizure was approximately 6 months ago. She denies any symptoms at time of my assessment and is requesting to go home. TRAVEL OUTSIDE OF THE [place] IN LAST 30 DAYS: No - HPI Onset: Just prior to arrival Onset/Duration: Sudden Quality of pain: No pain Severity: None Pain Level: Denies Associated symptoms: None Exacerbated by: Denies Relieved by: Denies Similar symptoms previously: Yes Recently seen / treated by doctor: No - Related Data Allergies/Adverse Reactions: No Known Allergies Allergy (Verified 12/05/16 11:37) Past Medical History - General Information source: Patient - Social History Smoking Status: Never Smoker Frequency of alcohol use: None Drug Abuse: None Lives with: Family Family History: Reviewed & Not Pertinent - Past Medical History Cardiac Medical History: Reports: Hx Heart Attack - NSTEMI 04-16-11 Denies: Hx Hypertension Pulmonary Medical History: Reports: Hx COPD Denies: Hx Asthma Neurological Medical History: Reports: Hx Seizures - x2. Denies: Hx Cerebrovascular Accident Endocrine Medical History: Reports: Hx Diabetes Mellitus Type 2, Hx Hypothyroidism Renal/ Medical History: Denies: Hx Peritoneal Dialysis GI Medical History: Denies: Hx Hepatitis, Hx Hiatal Hernia, Hx Ulcer Musculoskeltal Medical History: Reports Hx Arthritis - RA Psychiatric Medical History: Reports: Hx Dementia, Hx Depression Infectious Medical History: Denies: Hx Hepatitis Past Surgical History: Reports: Hx Abdominal Surgery - gastric bypass, Hx Cholecystectomy, Hx Gastric Bypass Surgery, Hx Gynecologic Surgery - hysterectomy, Hx Hysterectomy, Hx Neurologic Surgery - brain tumor removal 2008. Denies: Hx Mastectomy, Hx Open Heart Surgery, Hx Pacemaker - Immunizations Hx Diphtheria, Pertussis, Tetanus Vaccination: No Review of Systems - Review of Systems Notes: Constitutional: Negative for fever. HENT: Negative for sore throat. Eyes: Negative for visual changes. Cardiovascular: Negative for chest pain. Respiratory: Negative for shortness of breath. Gastrointestinal: Negative for abdominal pain, vomiting or diarrhea. Genitourinary: Negative for dysuria. Musculoskeletal: Negative for back pain. Skin: Negative for rash. Neurological: Negative for headaches, weakness or numbness. 10 point ROS negative except as marked above and in HPI. Physical Exam - Vital signs Vitals: Temp Pulse Resp BP Pulse Ox 98.8 F 74 20 171/70 H 95 02/08/17 19:23 02/08/17 19:23 02/08/17 19:23 02/08/17 19:23 02/08/17 19:23 Interpretation: Hypertensive Notes: PHYSICAL EXAMINATION: GENERAL: Well-appearing, well-nourished and in no acute distress. HEAD: Atraumatic, normocephalic. EYES: Pupils equal round and reactive to light, extraocular movements intact, sclera anicteric, conjunctiva are normal. ENT: nares patent, oropharynx clear without exudates. Moist mucous membranes. NECK: Normal range of motion, supple without lymphadenopathy LUNGS: Breath sounds clear to auscultation bilaterally and equal. No wheezes rales or rhonchi. HEART: Regular rate and rhythm without murmurs ABDOMEN: Soft, nontender, normoactive bowel sounds. No guarding, no rebound. No masses appreciated. EXTREMITIES: Normal range of motion, no pitting or edema. No cyanosis. NEUROLOGICAL: Face symmetric. Tongue protrudes midline. Extraocular motions intact. Pupils are 2 mm and equally reactive. Normal speech, normal gait. 5 out of 5 strength in both the distal and proximal upper and lower extremities bilaterally. Sensation is grossly intact throughout. Finger to nose testing normal. Pronator drift normal. PSYCH: Normal mood, normal affect. SKIN: Warm, Dry, normal turgor, no rashes or lesions noted. Course - Re-evaluation Re-evalutation: 02/08/17 20:55 Presentation of well-appearing patient after having a seizure. Patient has a known history of seizures. Patient apparently is not on any antiepileptic drugs and family is uncertain of when or why she was discontinued off these medications but they are clear that she does not follow with a neurologist and believe that this medication may have actually fallen off while she was in rehab. The patient has returned to baseline without intervention. No focal neurologic deficits. No infectious symptoms, vital sign abnormalities, or evidence of trauma. No indication for laboratories or imaging based on reassuring evaluation and known history of seizures. The patient will be discharged home, I will restart on levetiracetam and provide neurology follow- up recommendations. Return precautions have been reviewed and patient has verbalized understanding. - Vital Signs Vital signs: Temp Pulse Resp BP Pulse Ox 97.7 F 72 16 165/82 H 92 02/08/17 22:02 02/08/17 22:02 02/08/17 22:02 02/08/17 22:02 02/08/17 22:02 Discharge - Discharge Clinical Impression: Seizure Condition: Good Disposition: HOME, SELF-CARE Additional Instructions: Today you had a seizure. It is very important that you do not engage in any activities that could result in severe injury should you have a seizure. Specifically, do not drive a vehicle, go into a body of water, take a bath, climb ladders, or operate any heavy machinery until you have been cleared by your neurologist. Your being started on a medication called levetiracetam also known as Keppra. Please take as directed. Please return to the ED immediately if you have multiple seizures close together, develop a severe headache, weakness, numbness, difficulty speaking, have a seizure in which you do not return to normal within 1 hour of the seizure, or have any other symptoms that are concerning to you. Prescriptions: Levetiracetam [Keppra 500 mg Tablet] 500 mg PO Q12 #60 tablet Referrals: SIOBHAN HOLLAND MD [ACTIVE STAFF] - Follow up in 3-5 days
[2017-02-08 22:26] VITALS: BP 165/82
== END 2017-02-08 22:02 | disposition home or self-care (01) ==
LOC: ER 19:16
DX: R56.9 Unspecified convulsions (principal); I25.2 Old myocardial infarction; J44.9 Chronic obstructive pulmonary disease, unspecified; E11.9 Type 2 diabetes mellitus without complications; Z98.890 Other specified postprocedural states
CPT/HCPCS: 99284; A9270

== ENCOUNTER → 2017-04-18 | Outpatient (CLI) | payer MEDICARE, OTHER ==
--- NOTE | 2017-04-18 20:04 | XCELERA REPORT ---
[address] [address] Transthoracic Echocardiogram Report Name: WILFREDO LARIOS Age: 71 yrs Gender: Female : 1945 Patient Status: Outpatient Patient Location: Study Date: 04/18/2017 02:23 PM Height: 67 in Weight: 184 lb BSA: 2.0 m2 Reason For Study: EDEMA/BRADYCARDIA Ordering Physician: MAXIMINO NAVA Performed By: Moni Bocanegra Interpretation Summary Calcified aortic root not dilated Mild calcific with EXL20ov and Mod AR withPHT 614ms, and no LV enlargement Mod calcified mitral annular calcifcation. no MS and no MVP, mod MR with severe LA enlargement MOOSE 51.3ml/m2 No LVH, normal LVEF 60%, with LV diastolic dysfunction. Lateral wall hypokinesis, no LV enlargement Mod pulm hypertension RVSP is 50 mm Hg with RAP 8 mm Hg. IVC 26 dilated. MMode/2D Measurements & Calculations RVDd: 3.2 cm LVIDd: 5.4 cm FS: 29.0 % Ao root diam: IVSd: 0.94 cm LVIDs: 3.8 cm EDV(Teich): 139.0 ml 3.3 cm LVPWd: 1.0 cm ESV(Teich): 62.3 ml Ao root area: EF(Teich): 55.2 % 8.7 cm2 LA dimension: 4.1 cm LVOT diam: LVLd ap4: 8.7 cm SV(MOD-sp4): 72.0 ml 2.0 cm EDV(MOD-sp4): LA A2Cs: 28.7 cm2 LVOT area: 114.0 ml LVLs ap4: 7.4 cm 3.1 cm2 ESV(MOD-sp4): 42.0 ml EF(MOD-sp4): 63.2 % LA A4Cs: LA length: 7.0 cm LA Vol Index (BP): LA Volume: 99.4 ml 28.6 cm2 50.9 ml/m2 Doppler Measurements & Calculations MV E max pedro: MV P1/2t max pedro: Ao V2 max: AI max pedro: 92.6 cm/sec 92.6 cm/sec 220.4 cm/sec 443.0 cm/sec MV A max pedro: MV P1/2t: 79.6 msec Ao max PG: AI max P.1 cm/sec MVA(P1/2t): 2.8 cm2 19.5 mmHg 78.5 mmHg MV E/A: 1.2 MV dec slope: Ao V2 mean: AI dec slope: 144.9 cm/sec 210.4 cm/sec2 340.7 cm/sec2 Ao mean PG: AI P1/2t: 9.7 mmHg 616.6 msec Ao V2 VTI: 48.5 cm KENNY(I,D): 2.1 cm2 KENNY(V,D): 1.9 cm2 LV V1 max PG: SV(LVOT): 101.4 ml PA V2 max: PI end-d pedro: 6.9 mmHg 106.3 cm/sec 97.7 cm/sec LV V1 mean PG: PA max P.5 mmHg 4.5 mmHg LV V1 max: 131.3 cm/sec LV V1 mean: 84.8 cm/sec LV V1 VTI: 32.6 cm TR max pedro: 288.0 cm/sec TR max P.7 mmHg Left Ventricle The left ventricle is normal in size. There is normal left ventricular wall thickness. Left ventricular systolic function is normal. LV EF is 60%. The E/E' ratio between the mitral E wave and the mitral annulus E' wave is 19.6. There is lateral wall mild hypokinesis. There is no thrombus. Right Ventricle The right ventricle is normal in size, thickness and function. Atria The right atrium is normal. The left atrium is severely dilated. The interatrial septum is intact with no evidence for an atrial septal defect. Mitral Valve There is moderate to severe mitral leaflet calcification. There is no evidence of mitral valve prolapse. There is no mitral valve stenosis. There is a moderate amount of mitral regurgitation. Aortic Valve The aortic valve is not well visualized secondary to technical limitations. There is no aortic valvular vegetation. There is a peak gradient of 18 mm of Hg. MPG 10. There is a mild to moderate amount of aortic regurgitation. PHT 614 ms. Tricuspid Valve The tricuspid is normal in structure and function. There is no tricuspid valve prolapse. There is no tricuspid stenosis. There is a mild amount of tricuspid regurgitation. Right ventricular systolic pressure is estimated to be elevated at 40-50mmHg. Pulmonic Valve There is a trace or physiologic amount of pulmonic regurgitation. Great Vessels The aortic root is normal size. Effusions There is no pericardial effusion. I WMSI = 1.13 % Normal = 87 Segments Size X - Cannot 1 - Normal 2 - 3 - Akinetic4 - 1-2 small Interpret Hypokinetic Dyskinetic 3-5 moderate 5 - 6-14 large Aneurysmal 15-16 diffuse : MAXIMINO NAVA > Lasha Hendrickson
== END ==
LOC: SP 14:08
PROVIDERS: ATTEND Physician Assistant
DX: R00.1 Bradycardia, unspecified (principal); R60.9 Edema, unspecified
CPT/HCPCS: 93306

== ENCOUNTER → 2017-05-04 | Outpatient (CLI) | payer MEDICARE, OTHER ==
[2017-05-04 13:14] LABS: ANION GAP 9 (5-19); BLOOD UREA NITROGEN 20 mg/dL (7-20); CALCIUM 8.5 mg/dL (8.4-10.2); CARBON DIOXIDE 30 mmol/L (22-30); CHLORIDE 105 mmol/L (98-107); CREATININE RESULT 0.79 mg/dL (0.52-1.25); GLUCOSE 102 mg/dL (75-110); POTASSIUM 3.8 mmol/L (3.6-5.0); SODIUM 143.5 mmol/L (137-145)
== END ==
LOC: OD 10:41
PROVIDERS: ATTEND Internal Medicine
DX: I35.0 Nonrheumatic aortic (valve) stenosis (principal); R06.02 Shortness of breath; I34.8 Other nonrheumatic mitral valve disorders; E78.4 Other hyperlipidemia; E11.9 Type 2 diabetes mellitus without complications; R55 Syncope and collapse; R07.2 Precordial pain; I48.0 Paroxysmal atrial fibrillation; I49.9 Cardiac arrhythmia, unspecified; Z79.899 Other long term (current) drug therapy
CPT/HCPCS: 36415; 80048

== ENCOUNTER 2017-05-08 19:01 | Emergency (ER) | payer MEDICARE, OTHER ==
[2017-05-08 19:51] LABS: ABSOLUTE BASOPHILS # (AUTO) 0.1 10^3/uL (0.0-0.2); ABSOLUTE EOSINOPHILS # (AUTO) 0.1 10^3/uL (0.0-0.6); ABSOLUTE LYMPHOCYTES (AUTO) 1.1 10^3/uL (0.5-4.7); ABSOLUTE MONOCYTES (AUTO) 0.5 10^3/uL (0.1-1.4); ABSOLUTE NEUT (AUTO) 11.7 10^3/uL (1.7-8.2); BASOPHILS % (AUTO) 0.7 % (0-2); EOSINOPHILS % (AUTO) 0.9 % (0-6); HEMOGLOBIN 11.5 g/dL (12.0-15.5); HGB HCT DIFFERENCE -1.5; LYMPHOCYTES % (AUTO) 8.4 % (13-45); MEAN CORPUSCULAR HEMOGLOBIN 26.4 pg (27.0-33.4); MEAN CORPUSCULAR VOLUME 83 fl (80-97); MONOCYTES % (AUTO) 3.8 % (3-13); RED BLOOD COUNT 4.35 10^6/uL (3.72-5.28); RED CELL DISTRIBUTION WIDTH 14.6 % (11.5-14.0); SEGMENTED NEUTROPHILS % (AUTO) 86.2 % (42-78); WHITE BLOOD COUNT 13.5 10^3/uL (4.0-10.5)
[2017-05-08 20:11] LABS: ALANINE AMINOTRANSFERASE 14 U/L (9-52); ALBUMIN 3.8 g/dL (3.5-5.0); ALKALINE PHOSPHATASE 130 U/L (38-126); ANION GAP 13 (5-19); ASPARTATE AMINO TRANSFERASE 17 U/L (14-36); BILIRUBIN,DIRECT 0.2 mg/dL (0.0-0.4); BILIRUBIN,TOTAL 0.5 mg/dL (0.2-1.3); BLOOD UREA NITROGEN 21 mg/dL (7-20); CALCIUM 8.1 mg/dL (8.4-10.2); CARBON DIOXIDE 28 mmol/L (22-30); CHLORIDE 105 mmol/L (98-107); GLUCOSE 148 mg/dL (75-110); POTASSIUM 3.5 mmol/L (3.6-5.0); SODIUM 145.5 mmol/L (137-145); TOTAL PROTEIN 6.4 g/dL (6.3-8.2)
[2017-05-08] MEDS ORDERED: LAMOTRIGINE 100 MG TABLET PO ONE (20:18)
[2017-05-08 20:33] LABS: APPEARANCE,URINE CLEAR; BILIRUBIN,URINE NEGATIVE (NEGATIVE); GLUCOSE, URINE NEGATIVE (NEGATIVE); KETONES,URINE NEGATIVE (NEGATIVE); LEUKOCYTE ESTERASE,URINE NEGATIVE (NEGATIVE); NITRITE,URINE NEGATIVE (NEGATIVE); PROTEIN,URINE 100 mg/dL (NEGATIVE); URINE SPECIFIC GRAVITY 1.011; UROBILINOGEN,URINE NEGATIVE mg/dL (<2.0)
--- NOTE | 2017-05-08 22:20 | ER Document Report ---
ED General - General Chief Complaint: Seizure Stated Complaint: POSSIBLE SEIZURE Time Seen by Provider: 05/08/17 19:27 Mode of Arrival: Medic Information source: Patient, Relative - daughter TRAVEL OUTSIDE OF THE [place] IN LAST 30 DAYS: No - HPI Patient complains to provider of: seizure Onset: Just prior to arrival Onset/Duration: Sudden Quality of pain: No pain Associated symptoms: None Similar symptoms previously: Yes Notes: This 71-year-old female presents emergency department after having a full-blown seizure while at [employer] prior to arrival watching [employer] lights. Patient was on Keppra and Lamictal for seizure disorder and her neurologist discontinued the Keppra for an unknown reason. Patient's daughter states that patient has had her Keppra discontinued twice. - Related Data Allergies/Adverse Reactions: No Known Allergies Allergy (Verified 12/05/16 11:37) Past Medical History - General Information source: Patient, Relative - Social History Smoking Status: Never Smoker Cigarette use (# per day): No Chew tobacco use (# tins/day): No Smoking Education Provided: No Frequency of alcohol use: None Drug Abuse: None Lives with: Family Family History: Reviewed & Not Pertinent Patient has suicidal ideation: No Patient has homicidal ideation: No - Past Medical History Cardiac Medical History: Reports: Hx Heart Attack - NSTEMI 04-16-11 Denies: Hx Hypertension Pulmonary Medical History: Reports: Hx COPD Denies: Hx Asthma Neurological Medical History: Reports: Hx Seizures - x2. Denies: Hx Cerebrovascular Accident Endocrine Medical History: Reports: Hx Hypothyroidism Renal/ Medical History: Denies: Hx Peritoneal Dialysis Malignancy Medical History: Reports: None GI Medical History: Reports: None. Denies: Hx Hepatitis, Hx Hiatal Hernia, Hx Ulcer Musculoskeltal Medical History: Reports Hx Arthritis - RA Psychiatric Medical History: Reports: Hx Dementia, Hx Depression Infectious Medical History: Denies: Hx Hepatitis Past Surgical History: Reports: Hx Abdominal Surgery - gastric bypass, Hx Cholecystectomy, Hx Gastric Bypass Surgery, Hx Gynecologic Surgery - hysterectomy, Hx Hysterectomy, Hx Neurologic Surgery - brain tumor removal 2008. Denies: Hx Mastectomy, Hx Open Heart Surgery, Hx Pacemaker - Immunizations Hx Diphtheria, Pertussis, Tetanus Vaccination: No Review of Systems - Review of Systems Constitutional: No symptoms reported EENT: No symptoms reported Cardiovascular: No symptoms reported Respiratory: No symptoms reported Gastrointestinal: No symptoms reported Genitourinary: No symptoms reported Female Genitourinary: No symptoms reported Musculoskeletal: No symptoms reported Skin: No symptoms reported Hematologic/Lymphatic: No symptoms reported Neurological/Psychological: No symptoms reported, Seizure. denies: Confusion, Dementia, Depression, Anxiety, Hallucinations, Weakness, Paralysis, Headaches, Speech impairment, Numbness Physical Exam - Vital signs Vitals: Temp 98.7 F 05/08/17 19:15 BP 147/78 Interpretation: Normal - Notes Notes: PHYSICAL EXAMINATION: GENERAL: Well-appearing, well-nourished and in no acute distress. HEAD: Atraumatic, normocephalic. EYES: Pupils equal round and reactive to light, extraocular movements intact, conjunctiva are normal. ENT: Nares patent, oropharynx clear without exudates. Moist mucous membranes. NECK: Normal range of motion, supple without lymphadenopathy LUNGS: Breath sounds clear to auscultation bilaterally and equal. Scant expiratory wheezes. no rales or rhonchi. HEART: Regular rate and rhythm without murmurs ABDOMEN: Soft, nontender, nondistended abdomen. No guarding, no rebound. No masses appreciated. Female : deferred Musculoskeletal: Normal range of motion, no pitting or edema. No cyanosis. NEUROLOGICAL: Cranial nerves grossly intact. Normal speech, normal gait. Normal sensory, motor exams PSYCH: Normal mood, normal affect. SKIN: Warm, Dry, normal turgor, no rashes or lesions noted. Course - Re-evaluation Re-evalutation: 05/08/17 22:19 She was without seizure activity while in the emergency department. On second exam her wheezes had disappeared. She states she is ready to go home. She was instructed to call Dr. Anderson first thing in the morning for an appointment as well as to discuss implementing another seizure medication if Keppra is not an option. I did tell him I sent out her Lamictal level and it should be back in about a week. Patient is to continue her Lamictal dosage as previous. Did instruct her no driving. Her daughter was in the room while I went over all of this. All questions were answered. Patient left in stable condition. - Vital Signs Vital signs: Temp Pulse Resp BP Pulse Ox 98.7 F 18 141/78 H 94 05/08/17 19:15 05/08/17 21:01 05/08/17 21:01 05/08/17 20:17 - Laboratory Result Diagrams: 05/08/17 19:43 05/08/17 19:43 Laboratory results interpreted by me: 05/08/17 05/08/17 05/08/17 19:43 19:43 19:43 WBC 13.5 H Hgb 11.5 L MCH 26.4 L RDW 14.6 H Seg Neutrophils % 86.2 H Lymphocytes % 8.4 L Absolute Neutrophils 11.7 H Sodium 145.5 H Potassium 3.5 L BUN 21 H Glucose 148 H Calcium 8.1 L Alkaline Phosphatase 130 H Urine Protein 100 H Discharge - Discharge Clinical Impression: Seizure Condition: Stable Disposition: HOME, SELF-CARE Additional Instructions: Return to the emergency department immediately if you have any concerns. Please call your neurologist Dr. Anderson in the morning for follow-up. Referrals: WARREN VELASQUEZ MD [Primary Care Provider] - Follow up as needed
[2017-05-08 22:51] VITALS: BP 129/74
== END 2017-05-08 22:51 | disposition home or self-care (01) ==
LOC: ER 19:01
DX: R56.9 Unspecified convulsions (principal); Z79.899 Other long term (current) drug therapy
CPT/HCPCS: 99284; 36415; 85025; 80053; 80175; 81001; A9270; J3490

== ENCOUNTER → 2017-07-03 | Outpatient (CLI) | payer MEDICARE, OTHER ==
--- NOTE | 2017-07-03 16:26 | WOMENS IMAGING REPORT ---
EXAM DESCRIPTION: BONE DENSITY HIP/SPINE COMPLETED DATE/TIME: 07/03/2017 2:15 pm REASON FOR STUDY: AGE-RELATED OSTEOPROSIS; M81.0 M81.0 AGE-RELATED OSTEOPOROSIS W/O CURRENT PATHOLO DARIANA FRA COMPARISON: 01/23/2008. TECHNIQUE: Dual-Energy X-ray Absorptiometry (DEXA) of the AP Spine and Hip. LIMITATIONS: None. FINDINGS: LUMBAR SPINE: The bone mineral density (BMD) measured from L1-L4 in the AP projection correlates with a T-score of 0.1, which is normal as defined by the World Health Organization. HIP: The bone mineral density (BMD) measured in the left hip correlates with a T-score of -2.2, which is o steopenia as defined by the World Health Organization. IMPRESSION: 1. LUMBAR SPINE: NORMAL. 2. HIP: OSTEOPENIA. COMMENT: The World Health Organization defines low BMD as follows: T-score: Normal: Greater than -1.0 Osteopenia: Between -1.0 and -2.5 Osteoporosis: Less than -2.5 without fractures Established osteoporosis: Less than -2.5 with fractures In general, you may wish to consider: Diagnosis Treatment Follow-up DEXA Normal BMD Prevention 2-3 years Osteopenia Prevention/Therapy 1-2 years Osteoporosis Therapy Yearly TECHNICAL DOCUMENTATION: JOB ID: [id number]- All Rights Reserved
== END ==
LOC: WI 14:01
PROVIDERS: ATTEND Physician Assistant
DX: M81.0 Age-related osteoporosis without current pathological fracture (principal)
CPT/HCPCS: 77080

== ENCOUNTER 2017-07-25 00:59 | Emergency (ER) | payer MEDICARE, OTHER ==
--- NOTE | 2017-07-25 01:18 | ER Document Report ---
ED General - General Chief Complaint: Probable Seizure Stated Complaint: POSSIBLE SEIZURE Notes: Patient is a 72 8 year old female who presents after having a seizure. Patient states that she felt "strange" which is often how she feels before she has a seizure. She contacted EMS and they arrived to find her seizing. The seizure did terminate spontaneously. Patient has returned to baseline states she feels well. She denies any complaints at time of my assessment. No focal weakness, numbness, headache, vomiting, chest pain or shortness of breath. She states that this feels identical to her prior episodes of seizures. He does take lamotrigine 150 mg twice daily and states that she has not had any missed medication doses or any recent changes in her medications. She is uncertain what triggered her seizure tonight. TRAVEL OUTSIDE OF THE [place] IN LAST 30 DAYS: No - Related Data Allergies/Adverse Reactions: No Known Allergies Allergy (Verified 12/05/16 11:37) Past Medical History - General Information source: Patient - Social History Smoking Status: Never Smoker Frequency of alcohol use: None Drug Abuse: None Lives with: Alone Family History: Reviewed & Not Pertinent - Past Medical History Cardiac Medical History: Reports: Hx Heart Attack - NSTEMI 04-16-11 Denies: Hx Hypertension Pulmonary Medical History: Reports: Hx COPD Denies: Hx Asthma Neurological Medical History: Reports: Hx Seizures - x2. Denies: Hx Cerebrovascular Accident Endocrine Medical History: Reports: Hx Diabetes Mellitus Type 2, Hx Hypothyroidism Renal/ Medical History: Denies: Hx Peritoneal Dialysis GI Medical History: Denies: Hx Hepatitis, Hx Hiatal Hernia, Hx Ulcer Musculoskeltal Medical History: Reports Hx Arthritis - RA Psychiatric Medical History: Reports: Hx Dementia, Hx Depression Infectious Medical History: Denies: Hx Hepatitis Past Surgical History: Reports: Hx Abdominal Surgery - gastric bypass, Hx Cholecystectomy, Hx Gastric Bypass Surgery, Hx Gynecologic Surgery - hysterectomy, Hx Hysterectomy, Hx Neurologic Surgery - brain tumor removal 2008. Denies: Hx Mastectomy, Hx Open Heart Surgery, Hx Pacemaker - Immunizations Hx Diphtheria, Pertussis, Tetanus Vaccination: No Review of Systems - Review of Systems Notes: Constitutional: Negative for fever. HENT: Negative for sore throat. Eyes: Negative for visual changes. Cardiovascular: Negative for chest pain. Respiratory: Negative for shortness of breath. Gastrointestinal: Negative for abdominal pain, vomiting or diarrhea. Genitourinary: Negative for dysuria. Musculoskeletal: Negative for back pain. Skin: Negative for rash. Neurological: Negative for headaches, weakness or numbness. 10 point ROS negative except as marked above and in HPI. Physical Exam - Vital signs Interpretation: Hypertensive Notes: PHYSICAL EXAMINATION: GENERAL: Well-appearing, well-nourished and in no acute distress. HEAD: Atraumatic, normocephalic. EYES: Pupils equal round and reactive to light, extraocular movements intact, sclera anicteric, conjunctiva are normal. ENT: nares patent, oropharynx clear without exudates. Moderately dry mucous membranes. NECK: Normal range of motion, supple without lymphadenopathy LUNGS: Breath sounds clear to auscultation bilaterally and equal. No wheezes rales or rhonchi. HEART: Regular rate and rhythm without murmurs ABDOMEN: Soft, nontender, normoactive bowel sounds. No guarding, no rebound. No masses appreciated. EXTREMITIES: Normal range of motion, no pitting or edema. No cyanosis. NEUROLOGICAL: Face symmetric. Tongue protrudes midline. Extraocular motions intact. Pupils are 2 mm and equally reactive. Normal speech, normal gait. 5 out of 5 strength in both the distal and proximal upper and lower extremities bilaterally. Sensation is grossly intact throughout. Finger to nose testing normal. Pronator drift normal. PSYCH: Normal mood, normal affect. SKIN: Warm, Dry, normal turgor, no rashes or lesions noted. Course - Re-evaluation Re-evalutation: 07/25/17 01:17 Presentation of well-appearing patient after having a seizure. Patient has a known history of seizures. No obvious trigger for today's episode. The patient has returned to baseline without intervention. No focal neurologic deficits. No infectious symptoms, vital sign abnormalities, or evidence of trauma. No indication for laboratories or imaging based on reassuring evaluation and known history of seizures. The patient will be discharged home with recommendations for close follow-up with primary care as well as their neurologist. Return precautions have been reviewed and patient has verbalized understanding. Discharge - Discharge Clinical Impression: Seizures, Essential hypertension Condition: Good Disposition: HOME, SELF-CARE Additional Instructions: Today you had a seizure. It is very important that you do not engage in any activities that could result in severe injury should you have a seizure. Specifically, do not drive a vehicle, go into a body of water, take a bath, climb ladders, or operate any heavy machinery until you have been cleared by your neurologist. Please return to the ED immediately if you have multiple seizures close together, develop a severe headache, weakness, numbness, difficulty speaking, have a seizure in which you do not return to normal within 1 hour of the seizure, or have any other symptoms that are concerning to you.
[2017-07-25 01:29] VITALS: BP 155/58
[2017-07-25] MEDS ORDERED: GABAPENTIN 300 MG CAPSULE PO ONE (01:39)
== END 2017-07-25 01:55 | disposition home or self-care (01) ==
LOC: ER 00:59
DX: R56.9 Unspecified convulsions (principal); I10 Essential (primary) hypertension; Z79.899 Other long term (current) drug therapy
CPT/HCPCS: 99284; A9270

== ENCOUNTER 2017-09-27 21:30 | Emergency (ER) | payer MEDICARE, OTHER ==
--- NOTE | 2017-09-27 21:43 | ER Document Report ---
ED General - General Mode of Arrival: Medic Information source: Patient TRAVEL OUTSIDE OF THE [place] IN LAST 30 DAYS: No - General Chief Complaint: Seizure Stated Complaint: SYNCOPE Time Seen by Provider: 09/27/17 21:33 Notes: Patient is a 72 year old female with a extensive history of seizures presents to the emergency department due to a possible seizure. EMS states the patient was at [employer] in check out when the cashier ticket selling noticed the patient begin to have a syncopal episode after which they proceeded to lower the patient to the floor. It is reported that they then witnessed the patient have seizure in [place]. Upon arrival to the scene, EMS states the patient appeared post ictal. At bedside patient is alert and oriented and states she does not remember being in [place]. Patient states she is currently on Lamictal and has not missed any dosages. Patient's PCP is Dr. Smith. ([facility]) - Related Data Allergies/Adverse Reactions: No Known Allergies Allergy (Verified 12/05/16 11:37) Past Medical History - General Information source: Patient, Emergency Med Personnel, [facility] Records - Social History Smoking Status: Never Smoker Cigarette use (# per day): No Chew tobacco use (# tins/day): No Smoking Education Provided: No Frequency of alcohol use: None Family History: Reviewed & Not Pertinent - Past Medical History Cardiac Medical History: Reports: Hx Heart Attack - NSTEMI 04-16-11 Pulmonary Medical History: Reports: Hx COPD Neurological Medical History: Reports: Hx Seizures - x2 Endocrine Medical History: Reports: Hx Diabetes Mellitus Type 2, Hx Hypothyroidism Musculoskeltal Medical History: Reports Hx Arthritis - RA Psychiatric Medical History: Reports: Hx Dementia, Hx Depression Past Surgical History: Reports: Hx Abdominal Surgery - gastric bypass, Hx Cholecystectomy, Hx Gastric Bypass Surgery, Hx Gynecologic Surgery - hysterectomy, Hx Hysterectomy, Hx Neurologic Surgery - brain tumor removal 2008 - Immunizations Hx Diphtheria, Pertussis, Tetanus Vaccination: No Review of Systems - Review of Systems Constitutional: No symptoms reported EENT: No symptoms reported Cardiovascular: No symptoms reported Respiratory: No symptoms reported Gastrointestinal: No symptoms reported Genitourinary: No symptoms reported Female Genitourinary: No symptoms reported Musculoskeletal: No symptoms reported Skin: No symptoms reported Hematologic/Lymphatic: No symptoms reported Neurological/Psychological: See HPI, Seizure -: Yes All other systems reviewed and negative Physical Exam - Vital signs Vitals: Resp Pulse Ox 19 89 L 05/10/18 21:33 09/27/17 21:33 - Notes Notes: GENERAL: Alert, interacts well. No acute distress. HEAD: Normocephalic, atraumatic. EYES: Pupils equal, round, and reactive to light. Extraocular movements intact. ENT: Oral mucosa moist, tongue midline. Minor multiple lacerations to the tongue. Dried blood in the mouth and on the left side of the cheek. NECK: Full range of motion. Supple. Trachea midline. LUNGS: Clear to auscultation bilaterally, no wheezes, rales, or rhonchi. No respiratory distress. HEART: Regular rate and rhythm. No murmurs, gallops, or rubs. ABDOMEN: Soft, non-tender. Non-distended. Bowel sounds present in all 4 quadrants. EXTREMITIES: Moves all 4 extremities spontaneously. NEUROLOGICAL: Alert and oriented x3. Normal speech. PSYCH: Normal affect, normal mood. SKIN: Warm, dry, normal turgor. Old skin tear to the right ulnar forearm, patient states she snagged it in the car and placed a bandaged over it. New avulsed superficial skin tear to the right lateral upper extremity, just above the elbow. (JFEFREY COBIAN) Course - Re-evaluation Re-evalutation: 09/27/17 23:40 At this time the patient is dressed, she is completely alert and oriented and anxious to go home. Her daughter is here with her. She recalls being at [employer] to 2 by a foul smelling plant to see if it will dissuade her daughter's goat from eating the plants and elkins. (VAHE AUSTIN) - Vital Signs Vital signs: Temp Pulse Resp BP Pulse Ox 99.1 F 18 178/105 H 96 09/27/17 22:00 09/27/17 22:00 09/27/17 22:00 09/27/17 22:00 Discharge - Discharge Clinical Impression: Seizure, Skin tear High blood pressure Qualifiers: Hypertension type: essential hypertension Qualified Code(s): I10 - Essential ( primary) hypertension Condition: Stable Disposition: HOME, SELF-CARE Additional Instructions: Seizure, Known Epileptic You have had a seizure. Seizures may "break through" in an epileptic due to stress of infection or injury, a change in blood chemistry, or drug and alcohol use. Another common cause is failure to take medication as prescribed. Your doctor has evaluated your situation for the likely cause of this seizure. It is important that you follow his advice concerning any medication changes and follow-up care. Further testing of anti-seizure medication levels in your blood may be necessary. If you have a local owner operator truck driver's license, it's important that you DO NOT DRIVE until given permission by your physician. This seizure must be reported to the local owner operator truck driver 's license bureau. Call the doctor or return if seizures recur, or if new or unusual symptoms arise -- such as severe headache, confusion, excessive sleepiness, local weakness or numbness, neck stiffness, or fever. Skin Tear Your wound is a skin tear. These wounds are difficult and sometimes impossible to suture because the skin is so fragile that it may not hold the sutures. The skin condition can be due to aging and sometimes medications. The best care for such skin tears is sometimes to not try to suture them. Rather, it is best to position the skin as closely as possible to its original location and apply a bandage that can remain in place for several days at a time and sometimes these bandages are left in place until the wound has healed. Most skin tears will heal in about two weeks. Because they are so difficult to care for, skin tears should be expected to leave some scarring. Follow-up with Dr. Smith as needed. RETURN TO THE EMERGENCY ROOM IF ANY NEW OR WORSENING SYMPTOMS. Referrals: WARREN SMITH MD [Primary Care Provider] - Follow up as needed Scribe Attestation: 09/27/17 22:14 I personally performed the services described in the documentation, reviewed and edited the documentation which was dictated to the scribe in my presence, and it accurately records my words and actions. (NORMAN,VAHE) Scribe Documentation - Scribe Written by Brittany:: Brittany Lepe, 09/27/2017 21:51 acting as scribe for :: Norman
[2017-09-27] MEDS ORDERED: ACETAMINOPHEN 325 MG TABLET ONE (22:26)
[2017-09-27 23:11] VITALS: BP 178/105
== END 2017-09-27 23:44 | disposition home or self-care (01) ==
LOC: ER 21:30
DX: R56.9 Unspecified convulsions (principal); R55 Syncope and collapse; I10 Essential (primary) hypertension; J44.9 Chronic obstructive pulmonary disease, unspecified; E11.9 Type 2 diabetes mellitus without complications; E03.9 Hypothyroidism, unspecified; I25.2 Old myocardial infarction; Z90.49 Acquired absence of other specified parts of digestive tract; Z98.84 Bariatric surgery status; Z90.710 Acquired absence of both cervix and uterus
CPT/HCPCS: 99284; A9270

== ENCOUNTER → 2018-10-04 | Outpatient (CLI) | payer MEDICARE, OTHER ==
[2018-10-04 15:37] LABS: ABSOLUTE BASOPHILS # (AUTO) 0.1 10^3/uL (0.0-0.2); ABSOLUTE EOSINOPHILS # (AUTO) 0.2 10^3/uL (0.0-0.6); ABSOLUTE LYMPHOCYTES (AUTO) 1.5 10^3/uL (0.5-4.7); ABSOLUTE MONOCYTES (AUTO) 0.5 10^3/uL (0.1-1.4); ABSOLUTE NEUT (AUTO) 6.4 10^3/uL (1.7-8.2); BASOPHILS % (AUTO) 1.1 % (0-2); EOSINOPHILS % (AUTO) 1.8 % (0-6); HEMATOCRIT 38.9 % (36.0-47.0); HEMOGLOBIN 12.7 g/dL (12.0-15.5); LYMPHOCYTES % (AUTO) 17.4 % (13-45); MEAN CORPUSCULAR HEMOGLOBIN 30.2 pg (27.0-33.4); MEAN CORPUSCULAR HGB CONC 32.8 g/dL (32.0-36.0); MEAN CORPUSCULAR VOLUME 92 fl (80-97); MONOCYTES % (AUTO) 5.6 % (3-13); PLATELET COUNT 217 10^3/uL (150-450); RED BLOOD COUNT 4.22 10^6/uL (3.72-5.28); RED CELL DISTRIBUTION WIDTH 13.6 % (11.5-14.0); SEGMENTED NEUTROPHILS % (AUTO) 74.1 % (42-78); TOTAL CELLS COUNTED % (AUTO) 100 %; WHITE BLOOD COUNT 8.7 10^3/uL (4.0-10.5)
[2018-10-04 16:02] LABS: ALANINE AMINOTRANSFERASE 18 U/L (9-52); ALBUMIN 3.6 g/dL (3.5-5.0); ALKALINE PHOSPHATASE 106 U/L (38-126); ANION GAP 8 (5-19); ASPARTATE AMINO TRANSFERASE 14 U/L (14-36); BILIRUBIN,DIRECT 0.2 mg/dL (0.0-0.4); BILIRUBIN,TOTAL 0.9 mg/dL (0.2-1.3); BLOOD UREA NITROGEN 22 mg/dL (7-20); CALCIUM 8.9 mg/dL (8.4-10.2); CARBON DIOXIDE 32 mmol/L (22-30); CHLORIDE 101 mmol/L (98-107); GLUCOSE 152 mg/dL (75-110); POTASSIUM 4.9 mmol/L (3.6-5.0); SODIUM 140.9 mmol/L (137-145); TOTAL PROTEIN 6.3 g/dL (6.3-8.2)
== END ==
LOC: OD 15:09
PROVIDERS: ATTEND Physician Assistant
DX: R06.02 Shortness of breath (principal)
CPT/HCPCS: 36415; 80053; 83880; 85025

== ENCOUNTER → 2018-11-08 | Outpatient (CLI) | payer MEDICARE, OTHER ==
--- NOTE | 2018-11-12 10:45 | WOMENS IMAGING REPORT ---
EXAM DESCRIPTION: 3D SCREENING MAMMO BILAT COMPLETED DATE/TIME: 11/08/2018 8:45 am REASON FOR STUDY: Z12.31 ROUTINE 3D BILATERAL SCREENING Z12.31 ENCNTR SCREEN MAMMOGRAM FOR MALIGNAN T NEOPLASM OF LESIA COMPARISON: Multiple since 2010 EXAM PARAMETERS: Views: Standard craniocaudal and mediolateral oblique views of each breast recorded using digital acquisition and breast tomosynthesis. Read with the assistance of CAD. .[facility] - [employer]ator Inspector Version 9.2 LIMITATIONS: None. FINDINGS: No suspicious masses, suspicious calcifications or architectural distortion. No areas of c oncern. IMPRESSION: NEGATIVE MAMMOGRAM. BIRADS 1. BREAST DENSITY: b. There are scattered areas of fibroglandular density. BIRAD: ASSESSMENT: 1 NEGATIVE RECOMMENDATION: ROUTINE SCREENING COMMENT: The patient has been notified of the results by letter per MQSA requirements. Additional no tification policies are in place for contacting patient with suspicious or incomplete findings. Quality ID #[id number]: The [employer] recommends an annual screening mammogram for women aged 40 years or over. This facility utilizes a reminder system to ensure that all patients receive reminder letters, and/or direct phone calls for appointments. This includes reminders for routine scr eening mammograms, diagnostic mammograms, or other Breast Imaging Interventions when appropriate. Th is patient will be placed in the appropriate reminder system. TECHNICAL DOCUMENTATION: FINDING NUMBER: (1) ASSESSMENT: (1) JOB ID: [id number] [employer]- All Rights Reserved Reading location - IP/workstation name: [email or web address]
== END ==
LOC: WI 08:25
PROVIDERS: ATTEND Family Medicine
DX: Z12.31 Encounter for screening mammogram for malignant neoplasm of breast (principal)
CPT/HCPCS: 77063; 77067

== ENCOUNTER → 2019-02-06 | Outpatient (CLI) | payer MEDICARE, OTHER ==
--- NOTE | 2019-02-06 16:06 | RADIOLOGY REPORT (SQ) ---
EXAM DESCRIPTION: KNEE LEFT 3 VIEWS COMPLETED DATE/TIME: 02/06/2019 3:53 pm REASON FOR STUDY: ACUTE PAIN OF LEFT KNEE M25.562 PAIN IN LEFT KNEE COMPARISON: None. NUMBER OF VIEWS: Three views. TECHNIQUE: AP, lateral, and sunrise patella radiographic images acquired of the left knee. LIMITATIONS: None. FINDINGS: MINERALIZATION: Normal. BONES: No acute fracture or dislocation. No worrisome bone lesions. JOINT: No effusion. SOFT TISSUES: No soft tissue swelling. No radio-opaque foreign body. OTHER: No other significant finding. IMPRESSION: NEGATIVE STUDY OF THE LEFT KNEE. NO RADIOGRAPHIC EVIDENCE OF ACUTE INJURY. TECHNICAL DOCUMENTATION: JOB ID: [id number] [employer]- All Rights Reserved Reading location - IP/workstation name: [email or web address]
== END ==
LOC: OD 15:40
PROVIDERS: ATTEND Nurse Practitioner Family
DX: M25.562 Pain in left knee (principal)

== ENCOUNTER → 2019-05-16 | Outpatient (CLI) | payer MEDICARE, OTHER ==
--- NOTE | 2019-05-16 15:18 | RADIOLOGY REPORT (SQ) ---
EXAM DESCRIPTION: U/S ABD AORTIC SCREENING COMPLETED DATE/TIME: 05/16/2019 10:58 am REASON FOR STUDY: Z13.6 ENCOUNTER FOR SCREENING FOR CARDIOVASCULAR DISORDERS I71.9 AORTIC ANEURYSM OF UNSPECIFIED SITE, WITHOUT RUPTURE Z13.6 ENCOUNTER FOR SCREENING FOR CARDIOVASCULAR DISORDERS COMPARISON: None. TECHNIQUE: Static and dynamic grayscale images acquired of the aorta and stored on PACs. Selected co ezio Doppler and spectral images recorded. LIMITATIONS: None. FINDINGS: AORTIC CALIBER MAXIMAL PROXIMAL: 2.6 cm. MID: 1.5 cm. DISTAL: 1.2 cm. ILIAC DIAMETER RIGHT: 1 cm. LEFT: 1.1 cm. OTHER: No other finding. IMPRESSION: The proximal abdominal aorta is ectatic and it measures up to 2.6 cm in diameter. COMMENT: Aortic aneurysm imaging followup: 2.6-2.9 cm Every 5 years* *Based upon the Society for Vascular Surgery Guidelines: J Vasc Surg. 2009 Oct;50(4 Suppl):S2-49 *For aortas of maximum diameter of 2.6-2.9 cm meeting the criteria for AAA (?1.5 x proximal normal se gment) TECHNICAL DOCUMENTATION: JOB ID: [id number] [employer]- All Rights Reserved Reading location - IP/workstation name: [email or web address]
== END ==
LOC: RAD 10:18
PROVIDERS: ATTEND Physician Assistant
DX: I71.4 Abdominal aortic aneurysm, without rupture (principal)
CPT/HCPCS: 76706

== ENCOUNTER 2019-07-31 18:14 | Emergency (ER) | payer MEDICARE, OTHER ==
[2019-07-31 19:22] LABS: ALBUMIN 3.7 g/dL (3.5-5.0); ALKALINE PHOSPHATASE 110 U/L (38-126); ANION GAP 8 (5-19); ASPARTATE AMINO TRANSFERASE 21 U/L (14-36); BILIRUBIN,DIRECT 0.1 mg/dL (0.0-0.4); BILIRUBIN,TOTAL 0.9 mg/dL (0.2-1.3); BLOOD UREA NITROGEN 18 mg/dL (7-20); CALCIUM 8.4 mg/dL (8.4-10.2); CARBON DIOXIDE 31 mmol/L (22-30); CHLORIDE 99 mmol/L (98-107); GLUCOSE 186 mg/dL (75-110); POTASSIUM 3.3 mmol/L (3.6-5.0); TOTAL PROTEIN 6.4 g/dL (6.3-8.2)
[2019-07-31 19:23] LABS: ABSOLUTE BASOPHILS # (AUTO) 0.1 10^3/uL (0.0-0.2); ABSOLUTE EOSINOPHILS # (AUTO) 0.1 10^3/uL (0.0-0.6); ABSOLUTE LYMPHOCYTES (AUTO) 1.3 10^3/uL (0.5-4.7); ABSOLUTE MONOCYTES (AUTO) 0.4 10^3/uL (0.1-1.4); BASOPHILS % (AUTO) 0.6 % (0-2); EOSINOPHILS % (AUTO) 0.7 % (0-6); HEMATOCRIT 37.6 % (36.0-47.0); HEMOGLOBIN 12.8 g/dL (12.0-15.5); LYMPHOCYTES % (AUTO) 10.1 % (13-45); MEAN CORPUSCULAR HGB CONC 34.1 g/dL (32.0-36.0); MEAN CORPUSCULAR VOLUME 88 fl (80-97); MONOCYTES % (AUTO) 3.4 % (3-13); PLATELET COUNT 248 10^3/uL (150-450); RED BLOOD COUNT 4.27 10^6/uL (3.72-5.28); RED CELL DISTRIBUTION WIDTH 13.6 % (11.5-14.0); SEGMENTED NEUTROPHILS % (AUTO) 85.2 % (42-78); TOTAL CELLS COUNTED % (AUTO) 100 %; WHITE BLOOD COUNT 12.9 10^3/uL (4.0-10.5)
[2019-07-31 19:25] LABS: ALCOHOL < 10 mg/dL (NONE DETECTED)
[2019-07-31 20:01] LABS: APPEARANCE,URINE CLEAR; BILIRUBIN,URINE NEGATIVE (NEGATIVE); COLOR,URINE YELLOW; GLUCOSE, URINE NEGATIVE (NEGATIVE); KETONES,URINE NEGATIVE (NEGATIVE); LEUKOCYTE ESTERASE,URINE NEGATIVE (NEGATIVE); NITRITE,URINE NEGATIVE (NEGATIVE); PROTEIN,URINE 100 mg/dL (NEGATIVE); URINE SPECIFIC GRAVITY 1.013; UROBILINOGEN,URINE NEGATIVE mg/dL (<2.0)
[2019-07-31 20:14] LABS: URINE AMPHETAMINES SCREEN NEGATIVE; URINE BARBITURATES SCREEN NEGATIVE; URINE BENZODIAZEPINES SCREEN NEGATIVE; URINE COCAINE SCREEN NEGATIVE; URINE MARIJUANA (THC) SCREEN NEGATIVE; URINE METHADONE SCREEN NEGATIVE; URINE PHENCYCLIDINE SCREEN NEGATIVE
[2019-07-31] MEDS ORDERED: LAMOTRIGINE 100 MG TABLET PO ONE (22:56)
--- NOTE | 2019-07-31 23:18 | ER Document Report ---
Entered by MARSHALL MOORE SCRIBE 07/31/19 7509 Acting as scribe for:REINIER DING IV, MD ED General - General Chief Complaint: Seizure Stated Complaint: SEIZURE Time Seen by Provider: 07/31/19 22:45 Primary Care Provider: WARREN VELASQUEZ MD [Primary Care Provider] - Follow up as needed Information source: Patient Notes: 74-year-old female presents to the emergency department after a seizure episode earlier today. Patient was at [facility] when she started to feel "strange". It was reported that patient had several seizures and EMS was called. Patient was post-ictal when EMS arrived. When asked, patient stated that she feels "fine now". Patient is taking lamictal 150 mg BID. Patient reports that she has been taking her medication regularly. TRAVEL OUTSIDE OF THE [place] IN LAST 30 DAYS: No - Related Data Allergies/Adverse Reactions: No Known Allergies Allergy (Verified 12/05/16 11:37) Home Medications: lamictal, metformin, metoprolol, sertraline Past Medical History - General Information source: Patient - Social History Smoking Status: Never Smoker Cigarette use (# per day): No Chew tobacco use (# tins/day): No Frequency of alcohol use: None Drug Abuse: None Lives with: Family - Daughter Family History: Reviewed & Not Pertinent Patient has suicidal ideation: No Patient has homicidal ideation: No - Past Medical History Cardiac Medical History: Reports: Hx Heart Attack - NSTEMI 04-16-11, Hx Hyperte nsion Pulmonary Medical History: Reports: Hx COPD Neurological Medical History: Reports: Hx Seizures - x2 Endocrine Medical History: Reports: Hx Diabetes Mellitus Type 2, Hx Hypothyroidism Musculoskeletal Medical History: Reports Hx Arthritis - RA Psychiatric Medical History: Reports: Hx Dementia, Hx Depression Past Surgical History: Reports: Hx Abdominal Surgery - gastric bypass, Hx Cholecystectomy, Hx Gastric Bypass Surgery, Hx Hysterectomy, Hx Neurologic Surgery - brain tumor removal 2008 - Immunizations Hx Diphtheria, Pertussis, Tetanus Vaccination: No Review of Systems - Review of Systems Constitutional: No symptoms reported EENT: No symptoms reported Cardiovascular: No symptoms reported Respiratory: Cough - a week ago, Sputum - Thick-1 week ago Gastrointestinal: No symptoms reported Genitourinary: No symptoms reported Female Genitourinary: No symptoms reported Musculoskeletal: No symptoms reported Skin: No symptoms reported Hematologic/Lymphatic: No symptoms reported Neurological/Psychological: See HPI, Seizure -: Yes All other systems reviewed and negative Physical Exam - Vital signs Vitals: Resp Pulse Ox 13 94 07/31/19 18:21 07/31/19 18:21 - Notes Notes: Physical Exam: General: Alert, appears well. HEENT: Normocephalic. Atraumatic. PERRL. Extraocular movements intact. Oropharynx clear. Neck: Supple. Non-tender. Respiratory: No respiratory distress. Clear and equal breath sounds bilaterally. Cardiovascular: Regular rate and rhythm. Abdominal: Normal Inspection. Non-tender. No distension. Normal Bowel Sounds. Back: No gross abnormalities. Extremities: Moves all four extremities. Upper extremities: Normal inspection. Normal ROM. Lower extremities: Normal inspection. No edema. Normal ROM. Neurological: Normal cognition. AAOx4. Normal speech. Psychological: Normal affect. Normal Mood. Skin: Warm. Dry. Normal color. Course - Re-evaluation Re-evalutation: 07/31/19 22:57 Results of ED MSE discussed with patient. All questions were answered prior to discharge. Emergency signs and symptoms, reasons to return to the emergency department discussed with patient. - Vital Signs Vital signs: Temp Pulse Resp BP Pulse Ox 99.2 F 16 178/88 H 97 07/31/19 21:33 07/31/19 23:01 07/31/19 23:00 07/31/19 23:01 - Laboratory Result Diagrams: 07/31/19 18:51 07/31/19 18:51 Laboratory results interpreted by me: 07/31/19 07/31/19 07/31/19 18:51 18:51 19:50 WBC 12.9 H Lymph % (Auto) 10.1 L Absolute Neuts (auto) 11.0 H Seg Neutrophils % 85.2 H Potassium 3.3 L Carbon Dioxide 31 H Glucose 186 H Urine Protein 100 H Discharge - Discharge Clinical Impression: Seizure disorder Condition: Good Disposition: HOME, SELF-CARE Additional Instructions: Return to the Emergency Department without delay if any worse. HOME CARE INSTRUCTIONS & INFORMATION: Thank you for choosing us for your medical needs. We hope you're satisfied with the care you received. After you leave, you must properly care for your problem and, at the same time, observe its progress. Any condition can change. Some illnesses can change rapidly over hours or days. If your condition worsens, return to the Emergency Department or see your physician promptly. ABOUT YOUR X-RAYS AND EKG'S: If you had an EKG or X-rays taken, they have been read by the Emergency Physician. The X-rays and EKG's will also be read by a Radiologist or Tooth Polisher within 24 hours. If discrepancies are noted, you will be notified by telephone. Please be certain the ED has a correct telephone number & address where you can be reached. Also, realize that some fractures or abnormalities do not show up on initial X-rays. If your symptoms continue, see your physician. ABOUT YOUR LABORATORY TEST: If you had laboratory tests, the results have been reviewed by the Emergency Physician. Some test results (for example cultures) may not be available for several days. You will be contacted if any test result shows you need additional treatment. Please be certain the ED has a correct telephone number and address where you can be reached. ABOUT YOUR MEDICATIONS: You will receive instructions on how to take your medicine on the prescription label you receive. Additional information may be provided by the Pharmacy. If you have questions afterwards, call the ED for clarification or further instructions. Some prescribed medications may cause drowsiness. Do not perform tasks such as driving a car or operating machinery w ithout consulting your Pharmacist. If you feel you need a refill of pain medication, your condition will need re-evaluation. Please do not call for a refill of any medication. ABOUT YOUR SIGNATURE: Signature of this document acknowledges to followin. Understanding that you received emergency treatment and that you may be released before al medical problems are known or treated. Please be certain the ED has a correct phone number & address where you can be reached. 2. Acknowledgement that you will arrange for follow-up care as recommended. 3. Authorization for the Emergency Physician to provide information to your follow-up Physician in order to maximize your care. AT ANY TIME, IF YOUR SYMPTOMS CHANGE SIGNIFICANTLY OR WORSEN OR YOU DEVELOP NEW SYMPTOMS, RETURN TO THE EMERGENCY DEPARTMENT IMMEDIATELY FOR RE-EVALUATION. OUR GOAL IS TO PROVIDE EXCELLENT MEDICAL CARE! WE HOPE THAT WE HAVE MET YOUR EXPECTATIONS DURING YOUR EMERGENCY DEPARTMENT VISIT AND THAT YOU FEEL YOU HAVE RECEIVED EXCELLENT CARE! Seizure, Known Epileptic You have had a seizure. Seizures may "break through" in an epileptic due to stress of infection or injury, a change in blood chemistry, or drug and alcohol use. Another common cause is failure to take medication as prescribed. Your doctor has evaluated your situation for the likely cause of this seizure. It is important that you follow his advice concerning any medication changes and follow-up care. Further testing of anti-seizure medication levels in your blood may be necessary. If you have a box truck driver's license, it's important that you DO NOT DRIVE until given permission by your physician. This seizure must be reported to the box truck driver's license bureau. Call the doctor or return if seizures recur, or if new or unusual symptoms arise -- such as severe headache, confusion, excessive sleepiness, local weakness or numbness, neck stiffness, or fever. Referrals: WARREN VELASQUEZ MD [Primary Care Provider] - Follow up as needed I personally performed the services described in the documentation, reviewed and edited the documentation which was dictated to the scribe in my presence, and it accurately records my words and actions.
[2019-07-31 23:21] VITALS: BP 178/88
== END 2019-07-31 23:21 | disposition home or self-care (01) ==
LOC: ER 18:14
DX: G40.909 Epilepsy, unspecified, not intractable, without status epilepticus (principal); I10 Essential (primary) hypertension; J44.9 Chronic obstructive pulmonary disease, unspecified; E11.9 Type 2 diabetes mellitus without complications; F32.9 Major depressive disorder, single episode, unspecified; Z79.899 Other long term (current) drug therapy; Z79.84 Long term (current) use of oral hypoglycemic drugs
CPT/HCPCS: 99284; 36415; 80307 ×2; 83735; 85025; 80053; 81001; A9270; J3490